=== PATIENT | female | born 1965 | race Caucasian/White ===

== ENCOUNTER → 2017-07-06 | Outpatient (CLI) | payer MEDICARE, MEDICAID ==
[~2017-07-06] MED LIST: BEANTAB2 PO; BUSP10TA PO; METF500T13 PO; MULT1TAB10 PO; OMEP20CA3 PO
[2017-07-06 10:42] LABS: BASO % 0.3 % (0.0-1.0); EOS # 0.2 K/mm3 (0.0-0.50); EOS % 3.4 % (0.0-3.0); LARGE UNSTAINED CELL # 0.1 K/mm3 (0.0-0.4); LARGE UNSTAINED CELL % 1.8 % (0.0-4.0); LYMPH # 2.4 K/mm3 (1.5-4.5); LYMPH % 32.7 % (24.0-44.0); MEAN CORPUSCULAR HEMOGLOBIN 29.9 pg (27.0-33.0); MEAN CORPUSCULAR HGB CONC 32.7 g/dl (32.0-36.5); MEAN CORPUSCULAR VOLUME 91.5 fl (80.0-96.0); MONO # 0.3 K/mm3 (0.0-0.8); MONO % 3.6 % (0.0-5.0); NEUTROPHILS # 4.1 K/mm3 (1.8-7.7); NEUTROPHILS % 58.2 % (36.0-66.0); PLATELET COUNT, AUTOMATED 307 k/mm3 (150-450); RED CELL DISTRIBUTION WIDTH 12.8 % (11.5-14.5)
[2017-07-06 11:43] LABS: ALBUMIN 3.5 GM/DL (3.2-5.2); ALBUMIN/GLOBULIN RATIO 0.95 (1.00-1.93); ALKALINE PHOSPHATASE 96 U/L (45-117); ALT/SGPT 23 U/L (12-78); ANION GAP 8 MEQ/L (8-16); AST/SGOT 12 U/L (15-37); BILIRUBIN,TOTAL 0.4 MG/DL (0.2-1.0); BLOOD UREA NITROGEN 18 MG/DL (7-18); CALCIUM LEVEL 8.9 MG/DL (8.5-10.1); CARBON DIOXIDE LEVEL 30 MEQ/L (21-32); CHLORIDE LEVEL 106 MEQ/L (98-107); CHOLESTEROL LEVEL 136 MG/DL (<200); CREATININE FOR GFR 0.82 MG/DL (0.55-1.02); FREE T4 1.21 NG/DL (0.76-1.46); GLOMERULAR FILTRATION RATE > 60.0 (>51); GLUCOSE, FASTING 89 MG/DL (70-105); POTASSIUM SERUM 4.4 MEQ/L (3.5-5.1); SODIUM LEVEL 144 MEQ/L (136-145); TOTAL PROTEIN 7.2 GM/DL (6.4-8.2); TRIGLYCERIDES LEVEL 96 MG/DL (<150)
== END ==
LOC: M LAB 09:54
PROVIDERS: ATTEND Nurse Practitioner Adult Health
DX: E55.9 Vitamin D deficiency, unspecified (principal); E78.00 Pure hypercholesterolemia, unspecified; Z51.81 Encounter for therapeutic drug level monitoring; Z79.899 Other long term (current) drug therapy

== ENCOUNTER 2017-09-08 11:23 | Outpatient (CLI) | payer MEDICARE, MEDICAID ==
[~2017-09-08] VITALS: Ht 162.6 cm; Wt 93.4 kg
[2017-09-08] MEDS ORDERED: NS 1,000 ML IV ONE (12:00)
[2017-09-08] MEDS ORDERED: LIDOCAINE 2% INJ 100 MG/5 ML SDV (FOR ANES.) As Ordered ONE (12:09)
[2017-09-08] MEDS ORDERED: PROPOFOL 200 MG/20 ML VIAL As Ordered ONE ×2 (12:09→12:30)
--- NOTE | 2017-09-08 12:28 | ROOR ---
Patient Name: Pippa Monk Procedure Date: 09/08/2017 12:05 PM Date of : 1965 Age: 52 Room: [facility] Gender: Female Note Status: Finalized Procedure: Upper GI endoscopy Indications: Surveillance for malignancy due to personal history of Mendoza's esophagus, Heartburn Providers: Valentin BRIONES MD Referring MD: MEL LUZ NP Requesting Provider: Medicines: Monitored Anesthesia Care Complications: No immediate complications. Procedure: Pre-Anesthesia Assessment: - The heart rate, respiratory rate, oxygen saturations, blood pressure, adequacy of pulmonary ventilation, and response to care were monitored throughout the procedure. The Endoscope was introduced through the mouth, and advanced to the second part of duodenum. The upper GI endoscopy was accomplished without difficulty. The patient tolerated the procedure well. Findings: There were esophageal mucosal changes consistent with long-segment Mendoza's esophagus present in the lower third of the esophagus. The maximum longitudinal extent of these mucosal changes was 4 cm in length. Mucosa was biopsied with a cold forceps for histology randomly at intervals of 1 cm from 30 to 34 cm from the incisors. A total of 4 specimen bottles were sent to pathology. A small hiatal hernia was present. The exam was otherwise without abnormality. Impression: - Esophageal mucosal changes consistent with 4 cm long-segment Mendoza's esophagus, circumferential and patchy, smooth, no nodularity. Biopsied. - Small hiatal hernia. - The examination was otherwise normal. Recommendation: - Use Prilosec (omeprazole) 20 mg PO BID for Barretts esophagus, the rest of the patient's life. - Repeat upper endoscopy in 3 years for surveillance. - (the script was sent to your pharmacy on file) Valentin Briones MD Valentin BRIONES MD 09/08/2017 12:28:17 PM This report has been signed electronically. Number of Addenda: 0 Note Initiated On: 09/08/2017 12:05 PM Estimated Blood Loss: Estimated blood loss: none.
--- NOTE | 2017-09-08 12:44 | ROOR ---
Patient Name: Pippa Monk Procedure Date: 09/08/2017 12:07 PM Date of : 1965 Age: 52 Room: [facility] Gender: Female Note Status: Finalized Procedure: Colonoscopy Indications: Screening for colorectal malignant neoplasm Providers: Valentin BRIONES MD Referring MD: MEL LUZ NP Requesting Provider: Medicines: Monitored Anesthesia Care Complications: No immediate complications. Procedure: Pre-Anesthesia Assessment: - The heart rate, respiratory rate, oxygen saturations, blood pressure, adequacy of pulmonary ventilation, and response to care were monitored throughout the procedure. The Colonoscope was introduced through the anus and advanced to 4 cm into the ileum. The colonoscopy was performed without difficulty. The patient tolerated the procedure well. The quality of the bowel preparation was good. Findings: The perianal and digital rectal examinations were normal. (Exam: Complete, Prep: Good or Excellent.) Multiple small and large-mouthed diverticula were found in the sigmoid colon. Internal hemorrhoids were found during retroflexion. The hemorrhoids were medium-sized. The entire examined colon appeared normal on direct and retroflexion views. Impression: - (Exam: Complete, Prep: Good or Excellent.) - Moderate Diverticulosis in the sigmoid colon. - Moderate Internal hemorrhoids. - The entire examined colon is otherwise normal on direct and retroflexion views. - No specimens collected. Recommendation: - Repeat colonoscopy in 10 years for screening purposes. Valentin Briones MD Valentin BRIONES MD 09/08/2017 12:44:15 PM This report has been signed electronically. Number of Addenda: 0 Note Initiated On: 09/08/2017 12:07 PM Estimated Blood Loss: Estimated blood loss: none.
[2017-09-08 13:05] VITALS: BP 147/87
== END 2017-09-08 13:30 | disposition home or self-care (01) ==
LOC: M OPP 11:23
PROVIDERS: ATTEND Internal Medicine Gastroenterology
DX: Z12.11 Encounter for screening for malignant neoplasm of colon (principal); K57.30 Diverticulosis of large intestine without perforation or abscess without bleeding; K64.8 Other hemorrhoids; K22.70 Barrett's esophagus without dysplasia; K44.9 Diaphragmatic hernia without obstruction or gangrene; E78.5 Hyperlipidemia, unspecified; E11.9 Type 2 diabetes mellitus without complications; R12 Heartburn; K21.9 Gastro-esophageal reflux disease without esophagitis; M19.90 Unspecified osteoarthritis, unspecified site; M79.7 Fibromyalgia; F41.9 Anxiety disorder, unspecified; F31.9 Bipolar disorder, unspecified; G43.909 Migraine, unspecified, not intractable, without status migrainosus; F43.10 Post-traumatic stress disorder, unspecified; H91.90 Unspecified hearing loss, unspecified ear; Z78.0 Asymptomatic menopausal state; J44.9 Chronic obstructive pulmonary disease, unspecified; G47.30 Sleep apnea, unspecified; R06.83 Snoring; Z87.891 Personal history of nicotine dependence; Z88.1 Allergy status to other antibiotic agents; Z88.8 Allergy status to other drugs, medicaments and biological substances; Z91.040 Latex allergy status; Z88.0 Allergy status to penicillin; Z79.84 Long term (current) use of oral hypoglycemic drugs; Z79.899 Other long term (current) drug therapy; Z96.29 Presence of other otological and audiological implants; Z80.8 Family history of malignant neoplasm of other organs or systems
CPT/HCPCS: 43239; 88305; G0121

== ENCOUNTER → 2017-12-06 | Outpatient (CLI) | payer MEDICARE, MEDICAID ==
[2017-12-06 11:08] LABS: BASO % 0.5 % (0.0-1.0); EOS # 0.2 10^3/uL (0.0-0.50); EOS % 2.1 % (0.0-3.0); HEMATOCRIT 41.3 % (36.0-47.0); HEMOGLOBIN 13.9 g/dl (12.0-16.0); IMMATURE GRANULOCYTE % 0.3 % (0-0); LYMPH # 2.9 10^3/uL (1.5-4.5); LYMPH % 37.8 % (24.0-44.0); MEAN CORPUSCULAR HEMOGLOBIN 30.2 pg (27.0-33.0); MEAN CORPUSCULAR HGB CONC 33.7 g/dl (32.0-36.5); MEAN CORPUSCULAR VOLUME 89.8 fl (80.0-96.0); MONO # 0.5 10^3/uL (0.0-0.8); MONO % 6.2 % (0.0-5.0); NEUTROPHILS # 4.1 10^3/uL (1.8-7.7); NEUTROPHILS % 53.1 % (36.0-66.0); PLATELET COUNT, AUTOMATED 293 10^3/uL (150-450); RED CELL DISTRIBUTION WIDTH 13.2 % (11.5-14.5); WHITE BLOOD COUNT 7.7 10^3/uL (4.0-10.0)
[2017-12-06 11:38] LABS: ESTIMATED AVERAGE GLUCOSE 117 MG/DL (60-110); HEMOGLOBIN A1c 5.7 %
[2017-12-06 11:49] LABS: ALBUMIN/GLOBULIN RATIO 1.18 (1.00-1.93); ALKALINE PHOSPHATASE 81 U/L (45-117); ALT/SGPT 34 U/L (12-78); ANION GAP 7 MEQ/L (8-16); AST/SGOT 14 U/L (7-37); BILIRUBIN,TOTAL 0.5 MG/DL (0.2-1.0); BLOOD UREA NITROGEN 25 MG/DL (7-18); CALCIUM LEVEL 8.7 MG/DL (8.5-10.1); CARBON DIOXIDE LEVEL 30 MEQ/L (21-32); CHLORIDE LEVEL 105 MEQ/L (98-107); CHOLESTEROL LEVEL 168 MG/DL (<200); CREATININE FOR GFR 0.85 MG/DL (0.55-1.02); CREATININE, URINE 73.8 MG/DL; GLOMERULAR FILTRATION RATE > 60.0 (>51); GLUCOSE, FASTING 95 MG/DL (70-105); HDL CHOLESTEROL 42 MG/DL (>40); LDL CHOLESTEROL 107.4 MG/DL (<100); MALB URINE SIEMENS < 5.0 MG/L; MAU/CREAT RATIO 6.7 MCG/MG (0.0-30.0); NON-HDL-C 126 MG/DL; POTASSIUM SERUM 4.3 MEQ/L (3.5-5.1); SODIUM LEVEL 142 MEQ/L (136-145); TOTAL PROTEIN 7.4 GM/DL (6.4-8.2); TRIGLYCERIDES LEVEL 93 MG/DL (<150)
[2017-12-08 09:01] LABS: TOTAL 25(OH) VITAMIN D 35.9 NG/ML (30.0-100.0)
== END ==
LOC: M LAB 10:30
DX: E55.9 Vitamin D deficiency, unspecified (principal); E11.9 Type 2 diabetes mellitus without complications; Z79.899 Other long term (current) drug therapy; J44.9 Chronic obstructive pulmonary disease, unspecified; G47.33 Obstructive sleep apnea (adult) (pediatric)
CPT/HCPCS: 71046

== ENCOUNTER 2018-04-14 18:14 | Emergency (ER) | payer MEDICARE, MEDICAID ==
[2018-04-14 20:10] LABS: BASO % 0.5 % (0.0-1.0); EOS # 0.2 10^3/uL (0.0-0.50); EOS % 2.4 % (0.0-3.0); HEMATOCRIT 40.3 % (36.0-47.0); HEMOGLOBIN 13.2 g/dl (12.0-15.5); IMMATURE GRANULOCYTE % 0.1 % (0-3.0); LYMPH # 2.8 10^3/uL (1.5-4.5); LYMPH % 35.3 % (24.0-44.0); MEAN CORPUSCULAR HEMOGLOBIN 30.3 pg (27.0-33.0); MEAN CORPUSCULAR HGB CONC 32.8 g/dl (32.0-36.5); MEAN CORPUSCULAR VOLUME 92.6 fl (80.0-96.0); MONO # 0.5 10^3/uL (0.0-0.8); MONO % 6.5 % (0.0-5.0); NEUTROPHILS # 4.4 10^3/uL (1.8-7.7); NEUTROPHILS % 55.2 % (36.0-66.0); PLATELET COUNT, AUTOMATED 291 10^3/uL (150-450); RED BLOOD COUNT 4.35 10^6/uL (4.00-5.40); RED CELL DISTRIBUTION WIDTH 12.7 % (11.5-14.5)
[2018-04-14 20:20] LABS: INR 0.94; PROTHROMBIN TIME 12.7 SECONDS (12.4-14.5)
[2018-04-14] MEDS ORDERED: ISOVUE-370 76% 100ML VIAL (Q9967) As Ordered (20:41)
[2018-04-14 20:42] LABS: ALBUMIN 3.9 GM/DL (3.2-5.2); ALBUMIN/GLOBULIN RATIO 1.08 (1.00-1.93); ALKALINE PHOSPHATASE 100 U/L (45-117); ALT/SGPT 37 U/L (12-78); AMYLASE 31 U/L (25-115); ANION GAP 3 MEQ/L (8-16); AST/SGOT 22 U/L (7-37); BILIRUBIN,DIRECT < 0.1 MG/DL (0.0-0.2); BILIRUBIN,TOTAL 0.3 MG/DL (0.2-1.0); BLOOD UREA NITROGEN 23 MG/DL (7-18); CALCIUM LEVEL 8.3 MG/DL (8.5-10.1); CARBON DIOXIDE LEVEL 29 MEQ/L (21-32); CHLORIDE LEVEL 112 MEQ/L (98-107); CREATININE FOR GFR 0.95 MG/DL (0.55-1.30); GLOMERULAR FILTRATION RATE > 60.0 (>51); GLUCOSE, FASTING 94 MG/DL (70-100); LIPASE 162 U/L (73-393); POTASSIUM SERUM 3.9 MEQ/L (3.5-5.1); SODIUM LEVEL 144 MEQ/L (136-145); TOTAL PROTEIN 7.5 GM/DL (6.4-8.2)
[2018-04-14] MEDS ORDERED: NORCO 5/325MG TABLET (BULK FOR ED) PO (22:45)
== END 2018-04-14 22:53 | disposition home or self-care (01) ==
LOC: M ED 18:14
DX: S62.617A Displaced fracture of proximal phalanx of left little finger, initial encounter for closed fracture (principal); V00.831A Fall from motorized mobility scooter, initial encounter; Y92.89 Other specified places as the place of occurrence of the external cause; M25.552 Pain in left hip; Z88.0 Allergy status to penicillin; Z88.1 Allergy status to other antibiotic agents; Z88.8 Allergy status to other drugs, medicaments and biological substances; Z91.040 Latex allergy status
CPT/HCPCS: Q9967

== ENCOUNTER 2018-04-17 13:21 | Emergency (ER) | payer MEDICARE, MEDICAID | END 2018-04-17 15:28 | disposition home or self-care (01) | LOC: M ED 13:21 | DX: F43.0 Acute stress reaction (principal); F41.9 Anxiety disorder, unspecified; E78.9 Disorder of lipoprotein metabolism, unspecified; G47.30 Sleep apnea, unspecified; Z88.8 Allergy status to other drugs, medicaments and biological substances; Z88.1 Allergy status to other antibiotic agents; Z88.0 Allergy status to penicillin; Z91.040 Latex allergy status; Z79.899 Other long term (current) drug therapy; Z79.84 Long term (current) use of oral hypoglycemic drugs ==

== ENCOUNTER 2018-04-18 10:58 | Inpatient (IN) | payer MEDICARE, MEDICAID ==
[2018-04-18] MEDS: NS 1,000 ML IV (11:00)
[2018-04-18] MEDS: LORazepam 2 MG/ML VIAL (J2060) IV (11:06)
[2018-04-18 11:31] LABS: BASO # 0.1 10^3/uL (0.0-0.2); BASO % 0.6 % (0.0-1.0); EOS # 0.2 10^3/uL (0.0-0.50); EOS % 2.7 % (0.0-3.0); HEMATOCRIT 41.1 % (36.0-47.0); HEMOGLOBIN 13.8 g/dl (12.0-15.5); IMMATURE GRANULOCYTE % 0.3 % (0-3.0); LYMPH # 3.3 10^3/uL (1.5-4.5); LYMPH % 41.6 % (24.0-44.0); MEAN CORPUSCULAR HEMOGLOBIN 30.5 pg (27.0-33.0); MEAN CORPUSCULAR HGB CONC 33.6 g/dl (32.0-36.5); MEAN CORPUSCULAR VOLUME 90.9 fl (80.0-96.0); MONO # 0.4 10^3/uL (0.0-0.8); MONO % 5.6 % (0.0-5.0); NEUTROPHILS # 3.9 10^3/uL (1.8-7.7); NEUTROPHILS % 49.2 % (36.0-66.0); PLATELET COUNT, AUTOMATED 310 10^3/uL (150-450); RED BLOOD COUNT 4.52 10^6/uL (4.00-5.40); RED CELL DISTRIBUTION WIDTH 12.8 % (11.5-14.5); WHITE BLOOD COUNT 7.8 10^3/uL (4.0-10.0)
[2018-04-18 11:57] LABS: ALBUMIN 4.3 GM/DL (3.2-5.2); ALBUMIN/GLOBULIN RATIO 1.19 (1.00-1.93); ALKALINE PHOSPHATASE 94 U/L (45-117); ALT/SGPT 36 U/L (12-78); ANION GAP 13 MEQ/L (8-16); AST/SGOT 29 U/L (7-37); BILIRUBIN,DIRECT < 0.1 MG/DL (0.0-0.2); BILIRUBIN,TOTAL 0.5 MG/DL (0.2-1.0); BLOOD UREA NITROGEN 22 MG/DL (7-18); CALCIUM LEVEL 9.1 MG/DL (8.5-10.1); CARBON DIOXIDE LEVEL 20 MEQ/L (21-32); CHLORIDE LEVEL 109 MEQ/L (98-107); CPK CREATINE PHOSPHOKINASE 458 U/L (26-192); CREATININE FOR GFR 1.25 MG/DL (0.55-1.30); GLOMERULAR FILTRATION RATE 47.7 (>51); GLUCOSE, FASTING 135 MG/DL (70-100); POTASSIUM SERUM 3.7 MEQ/L (3.5-5.1); SODIUM LEVEL 142 MEQ/L (136-145); TOTAL PROTEIN 7.9 GM/DL (6.4-8.2); TROPONIN I 0.06 NG/ML (< 0.10)
[2018-04-18 12:03] LABS: CK-MB VALUE MASS 4.2 NG/ML (<3.6); MB/CK RELATIVE INDEX 0.91 (< OR =4)
[2018-04-18] MEDS: PERCOCET 5MG/325MG TAB PO (12:27)
[2018-04-18 13:37] LABS: ACETAMINOPHEN LEVEL 7.8 UG/ML (10.0-30.0); SALICYLATE LEVEL < 1.7 MG/DL (5.0-30.0)
[2018-04-18 13:37] LABS: ETHYL ALCOHOL (ETHANOL) 0.004 % (0.000-0.010)
[2018-04-18 14:04] LABS: AMPHETAMINES LEVEL URINE NEGATIVE (NEGATIVE); BARBITURATES URINE NEGATIVE (NEGATIVE); BENZODIAZEPINES URINE NEGATIVE (NEGATIVE); CANNABINOIDS URINE POSITIVE (NEGATIVE); COCAINE METABOLITE URINE NEGATIVE (NEGATIVE); METHADONE URINE NEGATIVE (NEGATIVE); OPIATES URINE NEGATIVE (NEGATIVE); PHENCYCLIDINE URINE NEGATIVE (NEGATIVE)
[2018-04-18 15:15] LABS: ALBUMIN 3.7 GM/DL (3.2-5.2); ALBUMIN/GLOBULIN RATIO 1.32 (1.00-1.93); ALKALINE PHOSPHATASE 86 U/L (45-117); ALT/SGPT 34 U/L (12-78); ANION GAP 6 MEQ/L (8-16); AST/SGOT 28 U/L (7-37); BILIRUBIN,TOTAL 0.4 MG/DL (0.2-1.0); BLOOD UREA NITROGEN 20 MG/DL (7-18); CALCIUM LEVEL 8.1 MG/DL (8.5-10.1); CARBON DIOXIDE LEVEL 26 MEQ/L (21-32); CHLORIDE LEVEL 113 MEQ/L (98-107); GLOMERULAR FILTRATION RATE > 60.0 (>51); GLUCOSE, FASTING 104 MG/DL (70-100); POTASSIUM SERUM 3.9 MEQ/L (3.5-5.1); SODIUM LEVEL 145 MEQ/L (136-145); TOTAL PROTEIN 6.5 GM/DL (6.4-8.2)
[2018-04-18] MEDS ORDERED: MAALOX 30 ML SUSP *UDC PO (16:45)
[2018-04-18] MEDS ORDERED: MOM 30ML SUSPENSION UDC PO (16:45)
[2018-04-18] MEDS: LORazepam 2 MG TAB PO (17:14)
[2018-04-18] MEDS: DIVALPROEX 250MG *ER* TAB PO (21:53)
[2018-04-18] MEDS: VENLAFAXINE **XR** 37.5 MG CAPSULE PO (21:54)
[2018-04-18] MEDS: busPIRone 10 MG TAB PO (21:54)
[2018-04-18] MEDS: ALBUTEROL 90 MCG/ACT 8GM HFA INHALER INH (21:55)
[2018-04-19] MEDS: DIVALPROEX 250MG *ER* TAB PO ×3 (09:00→22:17)
[2018-04-19] MEDS: ALBUTEROL 90 MCG/ACT 8GM HFA INHALER INH ×4 (10:06→22:18)
[2018-04-19] MEDS: MULTIVITAMINS/MINERALS THERAP 1 TAB PO (10:07)
[2018-04-19] MEDS: MAGNESIUM OXIDE 400 MG TAB (MAG-OX) PO (10:07)
[2018-04-19] MEDS: hydrOXYzine 50 MG TAB PO (10:07)
[2018-04-19] MEDS: metFORMIN (GLUCOPHAGE) 500 MG TAB PO (10:08)
[2018-04-19] MEDS: busPIRone 10 MG TAB PO ×2 (10:08→22:17)
[2018-04-19] MEDS: OMEPRAZOLE 20 MG CAP PO (10:08)
[2018-04-19] MEDS: VENLAFAXINE **XR** 37.5 MG CAPSULE PO (10:10)
[2018-04-19] MEDS: LISINOPRIL 5 MG TAB PO (19:30)
[2018-04-19] MEDS: BACITRACIN OINT 30GM TOP (21:00)
[2018-04-19] MEDS: traZODone 50 MG TAB PO (22:15)
[2018-04-20 07:56] LABS: CPK CREATINE PHOSPHOKINASE 128 U/L (26-192)
[2018-04-20] MEDS: OMEPRAZOLE 20 MG CAP PO (09:14)
[2018-04-20] MEDS: MAGNESIUM OXIDE 400 MG TAB (MAG-OX) PO (09:14)
[2018-04-20] MEDS: MULTIVITAMINS/MINERALS THERAP 1 TAB PO (09:14)
[2018-04-20] MEDS: ALBUTEROL 90 MCG/ACT 8GM HFA INHALER INH ×2 (09:15→12:51)
[2018-04-20] MEDS: LISINOPRIL 5 MG TAB PO (09:15)
[2018-04-20] MEDS: VENLAFAXINE **XR** 37.5 MG CAPSULE PO (09:15)
[2018-04-20] MEDS: DIVALPROEX 250MG *ER* TAB PO (09:15)
[2018-04-20] MEDS: busPIRone 10 MG TAB PO (09:15)
[2018-04-20] MEDS: metFORMIN (GLUCOPHAGE) 500 MG TAB PO (09:15)
[2018-04-20] MEDS: BACITRACIN OINT 30GM TOP (09:16)
[2018-04-20] MEDS: ACETAMINOPHEN TAB 650MG DOSE (2X325MG) PO (11:20)
== END 2018-04-20 14:20 | disposition home or self-care (01) | DRG 885 ==
LOC: M ED 10:58 → M ED INP 16:45 → M PSY 18:40
PROVIDERS: Psychiatry & Neurology Psychiatry
DX: F31.9 Bipolar disorder, unspecified (principal); F43.10 Post-traumatic stress disorder, unspecified; F60.3 Borderline personality disorder; F41.9 Anxiety disorder, unspecified; Z79.899 Other long term (current) drug therapy; Z88.8 Allergy status to other drugs, medicaments and biological substances; Z88.0 Allergy status to penicillin; Z88.6 Allergy status to analgesic agent; Z91.040 Latex allergy status; G47.33 Obstructive sleep apnea (adult) (pediatric); E11.9 Type 2 diabetes mellitus without complications; K21.9 Gastro-esophageal reflux disease without esophagitis

== ENCOUNTER 2018-08-19 16:56 | Emergency (ER) | payer MEDICARE, MEDICAID ==
[2018-08-19 18:06] LABS: BASO % 0.4 % (0.0-1.0); EOS # 0.1 10^3/uL (0.0-0.50); EOS % 0.9 % (0.0-3.0); HEMATOCRIT 41.6 % (36.0-47.0); HEMOGLOBIN 13.8 g/dl (12.0-15.5); IMMATURE GRANULOCYTE % 0.1 % (0-3.0); LYMPH # 2.2 10^3/uL (1.5-4.5); LYMPH % 29.1 % (24.0-44.0); MEAN CORPUSCULAR HEMOGLOBIN 30.3 pg (27.0-33.0); MEAN CORPUSCULAR HGB CONC 33.2 g/dl (32.0-36.5); MEAN CORPUSCULAR VOLUME 91.4 fl (80.0-96.0); MONO # 0.4 10^3/uL (0.0-0.8); MONO % 4.8 % (0.0-5.0); NEUTROPHILS # 4.9 10^3/uL (1.8-7.7); NEUTROPHILS % 64.7 % (36.0-66.0); PLATELET COUNT, AUTOMATED 278 10^3/uL (150-450); RED BLOOD COUNT 4.55 10^6/uL (4.00-5.40); RED CELL DISTRIBUTION WIDTH 12.9 % (11.5-14.5); WHITE BLOOD COUNT 7.5 10^3/uL (4.0-10.0)
[2018-08-19 18:10] LABS: KETONE, URINE AUTO RFX 1+ mg/dL (NEGATIVE); LEUKOCYTE ESTERASE UR AUTO RFX NEGATIVE (NEGATIVE); MUCUS, URINE RFX SMALL (NEGATIVE); NITRITE, URINE AUTO RFX NEGATIVE (NEGATIVE); RBC, URINE AUTO RFX 2 /HPF (0-3); SPECIFIC GRAVITY UR AUTO RFX 1.026 (1.002-1.035); SQUAM EPITHELIAL CELL UR AURFX 2 /HPF (0-6); WBC, URINE AUTO RFX 1 /HPF (0-3)
[2018-08-19] MEDS: NS 1,000 ML IV (18:14)
[2018-08-19] MEDS: ONDANSETRON 4MG/2ML VIAL (J2405) IV (18:15)
[2018-08-19] MEDS: MORPHINE 4 MG/ML 1ML VIAL/SYRINGE (J2270) IV ×2 (18:15→19:42)
[2018-08-19 18:47] LABS: ALBUMIN 4.4 GM/DL (3.2-5.2); ALBUMIN/GLOBULIN RATIO 1.33 (1.00-1.93); ALKALINE PHOSPHATASE 81 U/L (45-117); ALT/SGPT 33 U/L (12-78); ANION GAP 10 MEQ/L (8-16); AST/SGOT 22 U/L (7-37); BILIRUBIN,DIRECT 0.1 MG/DL (0.0-0.2); BILIRUBIN,TOTAL 0.5 MG/DL (0.2-1.0); BLOOD UREA NITROGEN 23 MG/DL (7-18); CALCIUM LEVEL 9.1 MG/DL (8.5-10.1); CARBON DIOXIDE LEVEL 24 MEQ/L (21-32); CHLORIDE LEVEL 105 MEQ/L (98-107); GLOMERULAR FILTRATION RATE > 60.0 (>51); GLUCOSE, FASTING 88 MG/DL (70-100); LIPASE 110 U/L (73-393); POTASSIUM SERUM 4.1 MEQ/L (3.5-5.1); SODIUM LEVEL 139 MEQ/L (136-145); TOTAL PROTEIN 7.7 GM/DL (6.4-8.2)
[2018-08-19] MEDS: BACLOFEN 10 MG TAB PO (19:15)
== END 2018-08-19 20:30 | disposition home or self-care (01) ==
LOC: M ED 16:56
DX: S39.012A Strain of muscle, fascia and tendon of lower back, initial encounter (principal); X50.9XXA Other and unspecified overexertion or strenuous movements or postures, initial encounter; Y92.89 Other specified places as the place of occurrence of the external cause; E11.9 Type 2 diabetes mellitus without complications; G47.33 Obstructive sleep apnea (adult) (pediatric); F43.10 Post-traumatic stress disorder, unspecified; F41.9 Anxiety disorder, unspecified; F33.9 Major depressive disorder, recurrent, unspecified; Z79.1 Long term (current) use of non-steroidal anti-inflammatories (NSAID); Z88.0 Allergy status to penicillin; Z88.1 Allergy status to other antibiotic agents; Z87.891 Personal history of nicotine dependence
CPT/HCPCS: J2270

== ENCOUNTER → 2018-11-28 | Outpatient (CLI) | payer MEDICARE, MEDICAID ==
[~2018-11-28] MED LIST changes: +ALEV220T26 PO; +ARIP5TA PO; +BACL10TA2 PO; +DEPA250T2 PO; +HYDRO50TAB PO; +MAGN250T9 PO; +NORCOTAB PO; +TRAZO50TA PO; +TYLE500T78 PO; +VENL37.598 PO; +VENTAER INH
[2018-11-28 11:19] LABS: BASO % 0.4 % (0.0-1.0); EOS # 0.2 10^3/uL (0.0-0.50); EOS % 2.4 % (0.0-3.0); HEMATOCRIT 42.2 % (36.0-47.0); HEMOGLOBIN 13.8 g/dl (12.0-15.5); LYMPH # 4.2 10^3/uL (1.5-4.5); MEAN CORPUSCULAR HEMOGLOBIN 30.1 pg (27.0-33.0); MEAN CORPUSCULAR HGB CONC 32.7 g/dl (32.0-36.5); MEAN CORPUSCULAR VOLUME 91.9 fl (80.0-96.0); MONO # 0.6 10^3/uL (0.0-0.8); NEUTROPHILS # 4.7 10^3/uL (1.8-7.7); NEUTROPHILS % 47.7 % (36.0-66.0); PLATELET COUNT, AUTOMATED 334 10^3/uL (150-450); RED BLOOD COUNT 4.59 10^6/uL (4.00-5.40); WHITE BLOOD COUNT 9.9 10^3/uL (4.0-10.0)
[2018-11-28 11:36] LABS: HEMOGLOBIN A1c 5.8 %
[2018-11-28 12:06] LABS: ALBUMIN 3.6 GM/DL (3.2-5.2); ALT/SGPT 23 U/L (12-78); BILIRUBIN,TOTAL 0.3 MG/DL (0.2-1.0); BLOOD UREA NITROGEN 21 MG/DL (7-18); CALCIUM LEVEL 8.7 MG/DL (8.5-10.1); CARBON DIOXIDE LEVEL 29 MEQ/L (21-32); CHLORIDE LEVEL 112 MEQ/L (98-107); CHOLESTEROL LEVEL 154 MG/DL (<200); CHOLESTEROL RISK RATIO 4.812 (<5); CREATININE FOR GFR 0.87 MG/DL (0.55-1.30); GLOMERULAR FILTRATION RATE > 60.0 (>51); GLUCOSE, FASTING 98 MG/DL (70-100); HDL CHOLESTEROL 32 MG/DL (>40); LDL CHOLESTEROL 93 MG/DL (<100); NON-HDL-C 122 MG/DL; POTASSIUM SERUM 4.9 MEQ/L (3.5-5.1); SODIUM LEVEL 151 MEQ/L (136-145); THYROID STIMULATING HORMONE 0.902 uIU/ML (0.358-3.740); TRIGLYCERIDES LEVEL 144 MG/DL (<150)
[2018-11-30 11:29] LABS: HEPATITIS B SURFACE ANTIGEN NEGATIVE (NEGATIVE)
[2018-11-30 11:57] LABS: HEPATITIS B CORE ANTIBODY IGM NEGATIVE (NEGATIVE); HEPATITIS C VIRUS ABY INDEX 0.1 INDEX (<0.8)
[2018-11-30 11:58] LABS: HIV 1&2 SCREEN CENTAUR NEGATIVE (NEGATIVE)
[2018-11-30 11:59] LABS: HEPATITIS A ANTIBODY IGM NEGATIVE (NEGATIVE)
== END ==
LOC: M LAB 10:44
PROVIDERS: ATTEND Physician Assistant Medical
DX: I10 Essential (primary) hypertension (principal); R53.83 Other fatigue; E78.2 Mixed hyperlipidemia; E11.9 Type 2 diabetes mellitus without complications

== ENCOUNTER → 2018-12-22 | Outpatient (CLI) | payer MEDICARE, MEDICAID ==
--- NOTE | 2018-12-22 17:23 | REPMRS ---
Patient History The patient states she had a clinical breast exam in 10/18.No known family history of cancer. 40 pound weight loss since last mammo. ( Intentional) Digital Mammo Screening Bilat: December 22, 2018 - Exam #: [id number] Bilateral CC and MLO view(s) were taken. Technologist: aLcy Huffman, Technologist Prior study comparison: August 26, 2014, left breast digital mammo diagnostic unilateral performed at [facility]. FINDINGS: There are scattered fibroglandular densities. There has been no change in the appearance of the mammogram from the prior studies. There is a mild amount of scattered fibroglandular density which is fairly symmetric. There is no interval development of dominant mass, architectural distortion, or clustered microcalcification suggestive of malignancy. 3-D tomosynthesis shows no additional findings. Assessment: BI-RADS/ACR category 1 mammogram. Negative Mammogram. Recommendation Routine screening mammogram of both breasts in 1 year (for women over age 40). This patient's Lifetime Breast Cancer RIsk is estimated at 8.7 %. This mammogram was interpreted with the aid of an FDA-approved computer-aided dectection system. Electronically Signed By: Rm López MD 12/22/18 [id number]
== END ==
LOC: M RAD 16:45
PROVIDERS: ATTEND Nurse Practitioner Women's Health
DX: Z12.31 Encounter for screening mammogram for malignant neoplasm of breast (principal)

== ENCOUNTER 2019-06-07 23:16 | Inpatient (IN) | payer MEDICARE, MEDICAID ==
[~2019-06-07] VITALS: Ht 162.6 cm; Wt 88.0 kg
[~2019-06-07 23:16] MED LIST changes: +ARIP1TAB6 PO; -ARIP5TA PO; +HYDR-3715 PO; -NORCOTAB PO; -OMEP20CA3 PO; +OMEP20CA4 PO; +TRAZ1TAB10 PO; -TRAZO50TA PO
[2019-06-07] MEDS ORDERED: hydrOXYzine 10 MG TAB PO STA (23:40)
[2019-06-07] MEDS ORDERED: HALOPERIDOL 5 MG/ML VIAL (J1630) IM STA (23:40)
[2019-06-07] MEDS ORDERED: diphenhydrAMINE INJ 50MG/ML VIAL (J1200) IM STA (23:40)
[2019-06-07] MEDS ORDERED: HALOPERIDOL 5 MG/ML VIAL (J1630) As Ordered ONE (23:43)
[2019-06-07] MEDS ORDERED: diphenhydrAMINE INJ 50MG/ML VIAL (J1200) As Ordered ONE (23:43)
[2019-06-08] MEDS ORDERED: chlorproMAZINE INJ 50MG/2ML AMP (J3230) IM STA (00:31)
[2019-06-08] MEDS ORDERED: LORazepam 2 MG/ML VIAL (J2060) IM STA (00:31)
[2019-06-08 00:59] LABS: HEMATOCRIT 38.6 % (36.0-47.0); HEMOGLOBIN 12.7 g/dl (12.0-15.5); MEAN CORPUSCULAR HEMOGLOBIN 30.9 pg (27.0-33.0); MEAN CORPUSCULAR HGB CONC 32.9 g/dl (32.0-36.5); MEAN CORPUSCULAR VOLUME 93.9 fl (80.0-96.0); PLATELET COUNT, AUTOMATED 248 10^3/uL (150-450); RED BLOOD COUNT 4.11 10^6/uL (4.00-5.40)
[2019-06-08 01:41] LABS: ACETAMINOPHEN LEVEL < 2.0 UG/ML (10.0-30.0); ALBUMIN 3.8 GM/DL (3.2-5.2); ALT/SGPT 29 U/L (12-78); BILIRUBIN,DIRECT < 0.1 MG/DL (0.0-0.2); BILIRUBIN,TOTAL 0.2 MG/DL (0.2-1.0); BLOOD UREA NITROGEN 20 MG/DL (7-18); CALCIUM LEVEL 8.6 MG/DL (8.5-10.1); CARBON DIOXIDE LEVEL 24 MEQ/L (21-32); CHLORIDE LEVEL 112 MEQ/L (98-107); CREATININE FOR GFR 1.18 MG/DL (0.55-1.30); GLOMERULAR FILTRATION RATE 50.8 (>51); GLUCOSE, FASTING 144 MG/DL (70-100); POTASSIUM SERUM 3.5 MEQ/L (3.5-5.1); SALICYLATE LEVEL < 1.7 MG/DL (5.0-30.0); SODIUM LEVEL 145 MEQ/L (136-145); TOTAL PROTEIN 7.1 GM/DL (6.4-8.2)
[2019-06-08 01:42] LABS: ETHYL ALCOHOL (ETHANOL) < 0.003 % (0.000-0.010)
[2019-06-08 02:15] LABS: AMPHETAMINES LEVEL URINE NEGATIVE (NEGATIVE); BARBITURATES URINE NEGATIVE (NEGATIVE); BENZODIAZEPINES URINE NEGATIVE (NEGATIVE); CANNABINOIDS URINE POSITIVE (NEGATIVE); COCAINE METABOLITE URINE NEGATIVE (NEGATIVE); METHADONE URINE NEGATIVE (NEGATIVE); OPIATES URINE NEGATIVE (NEGATIVE); PHENCYCLIDINE URINE NEGATIVE (NEGATIVE)
[2019-06-08] MEDS ORDERED: LORazepam 1 MG TAB PO ONE (09:00)
[2019-06-08] MEDS ORDERED: REME30TA PO (09:27)
[2019-06-08] MEDS ORDERED: BACL1TAB9 PO (09:27)
[2019-06-08] MEDS ORDERED: HYDR50TA70 PO (09:27)
[2019-06-08] MEDS ORDERED: VENL37.52 PO (09:27)
[2019-06-08] MEDS ORDERED: CENT1TAB9 PO (09:27)
[2019-06-08] MEDS ORDERED: METF500T4 PO (09:27)
[2019-06-08] MEDS ORDERED: IRON65TA2 PO (09:27)
[2019-06-08] MEDS ORDERED: OMEP-218 PO (09:27)
[2019-06-08] MEDS ORDERED: PRAZ2CAP PO (09:27)
[2019-06-08] MEDS ORDERED: BUSP10TA PO (09:27)
[2019-06-08] MEDS ORDERED: BP MED PO (09:38)
[2019-06-08] MEDS ORDERED: OMEPRAZOLE 20 MG CAP PO ONE (10:00)
[2019-06-08] MEDS ORDERED: busPIRone 10 MG TAB PO ONE (10:00)
[2019-06-08] MEDS ORDERED: metFORMIN XR 500MG TAB *GLUCOPHAGE XR PO ONE (10:00)
[2019-06-08] MEDS ORDERED: metFORMIN (GLUCOPHAGE) 500 MG TAB PO ONE (10:00)
[2019-06-08] MEDS ORDERED: MAGN400T2 PO (11:14)
[2019-06-08] MEDS ORDERED: MOM 30ML SUSPENSION UDC PO PRN (13:15)
[2019-06-08 15:42] VITALS: BP 140/90
[2019-06-08] MEDS: BACLOFEN 10 MG TAB PO SCH ×2 (16:11→21:36)
[2019-06-08] MEDS: FERROUS SULFATE 325MG TAB PO SCH (21:33)
[2019-06-08] MEDS: traZODone 50 MG TAB PO PRN (21:33)
[2019-06-08] MEDS: MAGNESIUM OXIDE 400 MG TAB (MAG-OX) PO SCH (21:34)
[2019-06-08] MEDS: PRAZOSIN 1 MG CAP PO SCH (21:36)
[2019-06-08] MEDS: OLANZapine 5 MG TAB PO PRN (22:49)
[2019-06-09 06:51] VITALS: BP 130/87
--- NOTE | 2019-06-09 07:51 | HPEPDOC ---
General Date of Admission Jun 08, 2019 at 13:15 Date of Service: Jun 09, 2019 Attending Physician: BATSHEVA MENDEZ MD Chief Complaint The patient is a 54-year-old female admitted with a reason for visit of GASTON. History of Present Illness Aleshia Das is a 54 year old female, PMH significant for PTSD, anxiety, depression, presenting to the emergency room after significant other called arnie reji due to patients increasing agitation. On admit, patient was very agitated, verbally abusive, uncooperative, labile. Urine drug screen was positive for THC. At time of evaluation, she still very emotional and tearful, she however denies any chest pain, shortness of breath, weakness, abdominal pain, chills, fever. Basic chemistry was abnormal for reduced GFR, repeat chemistry levels this morning show normalized values. Home Medications Scheduled Baclofen (Baclofen) 20 Mg Tablet, 20 MG PO TID, (Reported) Buspirone HCl (Buspirone HCl) 10 Mg Tablet, 10 MG PO BID, (Reported) Ferrous Sulfate (Iron) 325 Mg Tablet, 325 MG PO QHS, (Reported) Magnesium Oxide (Magnesium Oxide) 400 Mg Tablet, 400 MG PO QHS, (Reported) Metformin HCl (Metformin HCl ER) 500 Mg Tab.er.24h, 500 MG PO DAILY, (Reported) Mirtazapine (Remeron) 30 Mg Tablet, 30 MG PO QHS, (Reported) Multivit-Min/Iron/Folic/Lutein (Centrum Silver Women Tablet) 1 Each Tablet, 1 TAB PO QHS, (Reported) Omeprazole (Omeprazole) 20 Mg Capsule.dr, 20 MG PO DAILY, (Reported) Prazosin Hcl (Prazosin HCl) 2 Mg Capsule, 2 MG PO QHS, (Reported) Venlafaxine HCl (Venlafaxine HCl ER) 37.5 Mg Cap.er.24h, 37.5 MG PO QHS, (Reported) Scheduled PRN Hydroxyzine HCl (Hydroxyzine HCl) 50 Mg Tablet, 50 MG PO TID PRN for ANXIETY, ( Reported) Allergies Coded Allergies: Penicillins (Verified Allergy, Unknown, CHILDHOOD REACTION, 06/08/19) bacitracin (Verified Allergy, Unknown, SWELLING, 06/08/19) neomycin (Verified Allergy, Unknown, SWELLING, 06/08/19) polymyxin B (Verified Allergy, Unknown, SWELLING, 06/08/19) ciprofloxacin (Verified Adverse Reaction, Intermediate, MUSCLE PAIN, 06/08/19) ibuprofen (Verified Adverse Reaction, Intermediate, HORRIBLE PAIN IN BACK, 06/07/19) levofloxacin (Verified Adverse Reaction, Intermediate, SEVERE MUSCLE PAIN, 06/08/19) Past Medical History Medical History Type 2 diabetes mellitus Obstructive sleep apnea Obesity Bipolar disorder. PTSD GERD Depression Anxiety Surgical History Cholecystectomy Tubal ligation Left ankle surgery Mastoidectomy. Bilateral eardrum surgery Family History Follow-up: Cirrhosis Mother: Bipolar Social History Denies tobacco, alcohol, smokes THC every day A-FIB/CHADSVASC A-FIB History Current/History of A-Fib/PAF?: No Current PO Anticoag Therapy: No Review of Systems Other systems A 10 point pertinent review of systems was completed, negative except as stated in the history of presenting illness. Physical Examination Other physical findings GENERAL: NAD SKIN : Warm, dry intact HEENT: Atraumatic, normocephalic, PERRL, moist mucous membrane CARDIOVASCULAR: Regular rate and rhythm, S1S2, no JVD, no edema, distal pulses + and palpable RESP: CTAB, no accessory muscle use noted ABDOMEN: BS+ non distended non tender MS: no joint deformities NEURO: Alert and oriented x 3, CN2-12 grossly intact PSYCH: Anxious and agitated, tearful Vital Signs Vital Signs Date Time Temp Pulse Resp B/P (MAP) Pulse Ox O2 Delivery O2 Flow Rate FiO2 06/09/19 06:51 97.0 104 16 130/87 (101) 06/08/19 15:42 99 06/08/19 15:20 Room Air Assessment/Plan Type 2 diabetes mellitus Obstructive sleep apnea Morbid obesity COPD Polysubstance abuse with THC Bipolar disorder with acute gaston PLAN Finger stick checks prior to meals and at bedtime, continue coverage with metformin. Although patient has been diagnosed with sleep apnea, she does not use, or have a CPAP machine at home. Order scheduled bronchodilator therapy for patient and as needed Evaluation and management of acute gaston by primary team Plan / VTE VTE Prophylaxis Ordered?: No VTE Exclusion Mechanical Proph: Low Risk for VTE LINK DUONG Jun 09, 2019 07:51
[2019-06-09] MEDS: BACLOFEN 10 MG TAB PO SCH ×3 (08:07→20:37)
[2019-06-09 08:13] LABS: HEMOGLOBIN 12.8 g/dl (12.0-15.5); MEAN CORPUSCULAR HGB CONC 32.8 g/dl (32.0-36.5); MEAN CORPUSCULAR VOLUME 91.3 fl (80.0-96.0); PLATELET COUNT, AUTOMATED 259 10^3/uL (150-450); RED BLOOD COUNT 4.27 10^6/uL (4.00-5.40); WHITE BLOOD COUNT 7.6 10^3/uL (4.0-10.0)
[2019-06-09 08:56] LABS: ALBUMIN 3.7 GM/DL (3.2-5.2); ALT/SGPT 35 U/L (12-78); BILIRUBIN,TOTAL 0.4 MG/DL (0.2-1.0); BLOOD UREA NITROGEN 15 MG/DL (7-18); CARBON DIOXIDE LEVEL 27 MEQ/L (21-32); CHLORIDE LEVEL 109 MEQ/L (98-107); CREATININE FOR GFR 0.95 MG/DL (0.55-1.30); GLOMERULAR FILTRATION RATE > 60.0 (>51); GLUCOSE, FASTING 115 MG/DL (70-100); POTASSIUM SERUM 4.5 MEQ/L (3.5-5.1); SODIUM LEVEL 143 MEQ/L (136-145); TOTAL PROTEIN 7.2 GM/DL (6.4-8.2)
[2019-06-09] MEDS: metFORMIN XR 500MG TAB *GLUCOPHAGE XR PO SCH (09:33)
[2019-06-09] MEDS: COMBIVENT RESPIMAT 100-20MCG INHALER 4GM INH SCH ×2 (14:00→20:39)
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
[2019-06-09 18:00] VITALS: BP 140/92
[2019-06-09] MEDS: FERROUS SULFATE 325MG TAB PO SCH (20:37)
[2019-06-09] MEDS: busPIRone 10 MG TAB PO SCH (20:37)
[2019-06-09] MEDS: MAGNESIUM OXIDE 400 MG TAB (MAG-OX) PO SCH (20:39)
[2019-06-09] MEDS: PRAZOSIN 1 MG CAP PO SCH (20:39)
[2019-06-09] MEDS ORDERED: LITHIUM CARBONATE 300 MG CAP PO SCH (21:00)
[2019-06-10] MEDS: traZODone 50 MG TAB PO PRN ×2 (01:45→20:08)
[2019-06-10 06:32] LABS: HEMATOCRIT 38.6 % (36.0-47.0); HEMOGLOBIN 12.8 g/dl (12.0-15.5); MEAN CORPUSCULAR HEMOGLOBIN 30.3 pg (27.0-33.0); MEAN CORPUSCULAR HGB CONC 33.2 g/dl (32.0-36.5); MEAN CORPUSCULAR VOLUME 91.3 fl (80.0-96.0); PLATELET COUNT, AUTOMATED 253 10^3/uL (150-450); RED BLOOD COUNT 4.23 10^6/uL (4.00-5.40); WHITE BLOOD COUNT 6.7 10^3/uL (4.0-10.0)
[2019-06-10 06:49] VITALS: BP 117/71
[2019-06-10 07:04] LABS: ALBUMIN 3.7 GM/DL (3.2-5.2); ALT/SGPT 36 U/L (12-78); BILIRUBIN,TOTAL 0.3 MG/DL (0.2-1.0); BLOOD UREA NITROGEN 20 MG/DL (7-18); CALCIUM LEVEL 8.8 MG/DL (8.5-10.1); CARBON DIOXIDE LEVEL 25 MEQ/L (21-32); CHLORIDE LEVEL 109 MEQ/L (98-107); CREATININE FOR GFR 0.87 MG/DL (0.55-1.30); GLOMERULAR FILTRATION RATE > 60.0 (>51); GLUCOSE, FASTING 96 MG/DL (70-100); POTASSIUM SERUM 4.1 MEQ/L (3.5-5.1); SODIUM LEVEL 142 MEQ/L (136-145); TOTAL PROTEIN 7.1 GM/DL (6.4-8.2)
[2019-06-10] MEDS: COMBIVENT RESPIMAT 100-20MCG INHALER 4GM INH SCH ×2 (07:49→20:09)
[2019-06-10] MEDS: busPIRone 10 MG TAB PO SCH ×2 (10:04→20:08)
[2019-06-10] MEDS: BACLOFEN 10 MG TAB PO SCH ×3 (10:05→20:08)
[2019-06-10] MEDS: metFORMIN XR 500MG TAB *GLUCOPHAGE XR PO SCH (10:05)
--- NOTE | 2019-06-10 11:03 | REP ---
Pelvis/right hip: Three views. History: Right hip pain. Findings: AP and frog-leg views of the right hip are acquired in addition to an AP view of the pelvis. Femoral heads are smooth and rounded and hip joint spaces are preserved bilaterally. Periarticular soft tissues are normal on the right. There is some tendon insertion site spurring of the greater trochanter of the right hip. There are pelvic clips noted centrally. Degenerative sclerosis is seen at the symphysis pubis. There is a benign osteochondroma projecting from the anterolateral aspect of the left iliac bone noted incidentally. This is unchanged from CT study of April 14, 2018. Impression: Tendon insertion site spurring greater trochanter right hip may reflect tendonitis. Degenerative sclerosis at the symphysis pubis. 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 Electronically Signed by Olivier López MD 06/10/2019 04:57 P
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
[2019-06-10] MEDS ORDERED: DIVALPROEX 250MG *ER* TAB PO ONE (12:00)
[2019-06-10] MEDS ORDERED: PALIPERIDONE 3 MG ER TAB (INVEGA) PO ONE (13:00)
[2019-06-10 18:00] VITALS: BP 134/80
[2019-06-10] MEDS: DIVALPROEX 250MG *ER* TAB PO SCH (20:08)
[2019-06-10] MEDS: MAGNESIUM OXIDE 400 MG TAB (MAG-OX) PO SCH (20:08)
[2019-06-10] MEDS: FERROUS SULFATE 325MG TAB PO SCH (20:08)
[2019-06-10] MEDS: PRAZOSIN 1 MG CAP PO SCH (20:09)
[2019-06-10] MEDS ORDERED: PALIPERIDONE 3 MG ER TAB (INVEGA) PO SCH (21:00)
[2019-06-10] MEDS: ACETAMINOPHEN TAB 650MG DOSE (2X325MG) PO PRN (21:06)
[2019-06-11] MEDS ORDERED: OLANZapine ORAL DISINTEGRATING TAB 5MG PO ONE (00:15)
[2019-06-11 06:59] VITALS: BP 126/66
[2019-06-11] MEDS: COMBIVENT RESPIMAT 100-20MCG INHALER 4GM INH SCH ×2 (07:52→20:00)
[2019-06-11] MEDS: BACLOFEN 10 MG TAB PO SCH ×3 (07:56→21:02)
[2019-06-11] MEDS: busPIRone 10 MG TAB PO SCH ×2 (07:56→21:02)
[2019-06-11] MEDS: metFORMIN XR 500MG TAB *GLUCOPHAGE XR PO SCH (07:57)
[2019-06-11] MEDS: DIVALPROEX 250MG *ER* TAB PO SCH (07:57)
[2019-06-11] MEDS ORDERED: PALIPERIDONE 3 MG ER TAB (INVEGA) PO SCH (09:00)
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
[2019-06-11] MEDS: PANTOPRAZOLE 40MG TAB (PROTONIX) PO SCH (15:12)
[2019-06-11 18:10] VITALS: BP 138/92
[2019-06-11] MEDS: LITHIUM CARBONATE 300 MG CAP PO SCH (21:02)
[2019-06-11] MEDS: FERROUS SULFATE 325MG TAB PO SCH (21:02)
[2019-06-11] MEDS: MAGNESIUM OXIDE 400 MG TAB (MAG-OX) PO SCH (21:02)
[2019-06-11] MEDS: traZODone 50 MG TAB PO PRN (21:02)
[2019-06-11] MEDS: PRAZOSIN 1 MG CAP PO SCH (21:03)
[2019-06-11] MEDS: ACETAMINOPHEN TAB 650MG DOSE (2X325MG) PO PRN (21:04)
[2019-06-11] MEDS: LORazepam 2 MG TAB PO PRN (21:05)
[2019-06-12 06:50] VITALS: BP 131/74
[2019-06-12] MEDS: COMBIVENT RESPIMAT 100-20MCG INHALER 4GM INH SCH ×2 (07:26→20:27)
[2019-06-12] MEDS: BACLOFEN 10 MG TAB PO SCH ×3 (08:02→20:28)
[2019-06-12] MEDS: metFORMIN XR 500MG TAB *GLUCOPHAGE XR PO SCH (08:02)
[2019-06-12] MEDS: PANTOPRAZOLE 40MG TAB (PROTONIX) PO SCH (08:02)
[2019-06-12] MEDS: busPIRone 10 MG TAB PO SCH ×2 (08:02→20:28)
[2019-06-12] MEDS: LORazepam 2 MG TAB PO PRN ×2 (08:53→20:28)
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
[2019-06-12 18:00] VITALS: BP 136/77
[2019-06-12] MEDS: traZODone 50 MG TAB PO PRN (20:28)
[2019-06-12] MEDS: LITHIUM CARBONATE 300 MG CAP PO SCH (20:28)
[2019-06-12] MEDS: FERROUS SULFATE 325MG TAB PO SCH (20:28)
[2019-06-12] MEDS: MAGNESIUM OXIDE 400 MG TAB (MAG-OX) PO SCH (20:28)
[2019-06-12] MEDS: PRAZOSIN 1 MG CAP PO SCH (20:31)
[2019-06-13] MEDS: PANTOPRAZOLE 40MG TAB (PROTONIX) PO SCH (06:50)
[2019-06-13 06:54] VITALS: BP 122/58
[2019-06-13] MEDS: COMBIVENT RESPIMAT 100-20MCG INHALER 4GM INH SCH ×2 (07:23→20:32)
[2019-06-13] MEDS: metFORMIN XR 500MG TAB *GLUCOPHAGE XR PO SCH (08:16)
[2019-06-13] MEDS: busPIRone 10 MG TAB PO SCH ×2 (08:16→20:32)
[2019-06-13] MEDS: BACLOFEN 10 MG TAB PO SCH ×3 (08:17→20:33)
[2019-06-13 18:00] VITALS: BP 138/80
[2019-06-13] MEDS: LITHIUM CARBONATE 300 MG CAP PO SCH (20:28)
[2019-06-13] MEDS: FERROUS SULFATE 325MG TAB PO SCH (20:32)
[2019-06-13] MEDS: MAGNESIUM OXIDE 400 MG TAB (MAG-OX) PO SCH (20:32)
[2019-06-13] MEDS: PRAZOSIN 1 MG CAP PO SCH (20:33)
[2019-06-13] MEDS: traZODone 50 MG TAB PO PRN (20:33)
[2019-06-13] MEDS: ACETAMINOPHEN TAB 650MG DOSE (2X325MG) PO PRN (20:34)
[2019-06-13] MEDS: LORazepam 2 MG TAB PO PRN (22:32)
[2019-06-13] MEDS: OLANZapine 5 MG TAB PO PRN (22:32)
[2019-06-14] MEDS: PANTOPRAZOLE 40MG TAB (PROTONIX) PO SCH (06:03)
[2019-06-14 06:55] VITALS: BP 118/56
[2019-06-14] MEDS: COMBIVENT RESPIMAT 100-20MCG INHALER 4GM INH SCH ×2 (08:40→21:06)
[2019-06-14] MEDS: busPIRone 10 MG TAB PO SCH ×2 (08:41→21:06)
[2019-06-14] MEDS: BACLOFEN 10 MG TAB PO SCH ×3 (08:41→21:06)
[2019-06-14] MEDS: metFORMIN XR 500MG TAB *GLUCOPHAGE XR PO SCH (08:42)
[2019-06-14] MEDS: LITHIUM CARBONATE 300 MG CAP PO SCH (08:45)
[2019-06-14] MEDS: LORazepam 2 MG TAB PO PRN (10:21)
[2019-06-14] MEDS ORDERED: DIVALPROEX 250 MG TAB PO ONE (14:00)
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
[2019-06-14 18:12] VITALS: BP 150/91
[2019-06-14] MEDS: DIVALPROEX 250 MG TAB PO SCH (21:06)
[2019-06-14] MEDS: MAGNESIUM OXIDE 400 MG TAB (MAG-OX) PO SCH (21:06)
[2019-06-14] MEDS: FERROUS SULFATE 325MG TAB PO SCH (21:06)
[2019-06-14] MEDS: traZODone 50 MG TAB PO PRN (21:07)
[2019-06-14] MEDS: PRAZOSIN 1 MG CAP PO SCH (21:10)
[2019-06-15] MEDS: PANTOPRAZOLE 40MG TAB (PROTONIX) PO SCH (06:20)
[2019-06-15 06:46] VITALS: BP 139/85
[2019-06-15] MEDS: COMBIVENT RESPIMAT 100-20MCG INHALER 4GM INH SCH ×2 (07:57→20:06)
[2019-06-15] MEDS: busPIRone 10 MG TAB PO SCH ×2 (08:02→20:07)
[2019-06-15] MEDS: DIVALPROEX 250 MG TAB PO SCH ×2 (08:02→20:07)
[2019-06-15] MEDS: BACLOFEN 10 MG TAB PO SCH ×3 (08:02→20:07)
[2019-06-15] MEDS: metFORMIN XR 500MG TAB *GLUCOPHAGE XR PO SCH (08:03)
--- NOTE | 2019-06-15 11:29 | MHIPNPDOC ---
[facility] Progress Note Progress Note Inpatient Progress Note Pippa Monk Age 54 Female Date of : 1965 Date of Service: 06/15/2019 History of Present Illness The patient a 54-year-old woman presents to [facility] after notably acting in a bizarre manner in a local dairy shop, where she had subsequently began yelling that her boyfriend was killing her and drove off, leaving her boyfriend stranded. Her boyfriend relayed a consistent story of increasing bizarre ideation and behavioral problems. She has a history of bipolar when she was initially brought into the emergency room. She was noted to be fairly agitated, spitting on staff and needing to be physically restrained. Interval History The patient has met with today where she describes that she is feeling much improved on the Depakote and Abilify. She describes she has noticed no particular side effects from the medications and that she is doing well. Staff have noticed that she is much less problematic in terms of her intrusiveness and circumstantial thinking. She does not have any behavioral problems on the unit and no more reported falls that appear to be primarily behavioral. Review Of Systems Reports improved sense of mood stability, less irritability, and improved sleep. Denies any tremors or GI upset. Psychotherapy None on this visit. Vital Signs Reviewed. Mental Status Examination General: Well dressed with good hygiene Speech: Spontaneous and fluid Thought processes: More linear MSK: Smooth and coordinated gait, no signs of tremors or involuntary orofacial movements Thought content: More hopeful Abstract reasoning, and computation: Intact Description of associations: Improved Description of abnormal or psychotic thoughts: Denies any suicidal or homicidal ideation. Denies any auditory or visual hallucinations. Does not appear to be responding to internal stimuli. Does not overtly endorse any bizarre paranoid ideation Judgment: Improving Insight: Improving Orientation: Alert and orientated 3 Cognition: Grossly normal Recent and remote memory: Intact Attention span and concentration: Intact Fund of knowledge: Adequate Mood: "okay" Affect: Less irritable. Diagnoses Bipolar 1 disorder, current episode manic: improving. Cannabis use disorder, severe. Assessment and Plan The patient a 54-year-old woman with a history of bipolar disorder and significant cannabis use is seen on the inpatient unit. She does appear to be improving on Depakote and abilify However, she reports that she is concerned about the long-term side effects of Depakote having previously been on it in the past. The patient reports now symptoms of increased mixed episode with strong dysphoria. The patient reports that she is improving with the Depakote and is becoming much less behaviourally challenging. Start to continue Depakote 250 mg BID with dose now of 250 mg. Continue Abilify 5 mg at night and continue home hydroxyzine dose of 50 mg TID PRN. Metabolic labs: Depakote level ordered for tomorrow. Disposition The patient will need a further inpatient stay in order to do further laboratory workup on her medication and observe the effects to ensure that she does not decompensate as she had done with the lithium. Time Spent 20 minutes face to face. Friday Vital Signs Vital Signs Date Time Temp Pulse Resp B/P (MAP) Pulse Ox O2 Delivery O2 Flow Rate FiO2 06/15/19 06:46 98.4 95 14 139/85 (103) Laboratory Data 24H Labs Laboratory Tests 2 06/14/19 16:38: Bedside Glucose (Misc Panel) 106H 06/15/19 06:19: Bedside Glucose (Misc Panel) 96 Current Medications Current Medications Acetaminophen (Tylenol Tab) 650 mg Q6HP PRN PO HEADACHE or DISCOMFORT Last administered on 06/13/19at 20:34; Start 06/08/19 at 13:15 Albuterol/ Ipratropium (Combivent Respimat 100-20mcg) 1 puff RBID INH Last administered on 06/15/19at 07:57; Start 06/09/19 at 08:00 Aripiprazole (AbiLIFY) 5 mg BID PO ; Start 06/10/19 at 21:00; Status Cancel Aripiprazole (AbiLIFY) 5 mg QHS PO Last administered on 06/14/19at 21:04; Start 06/14/19 at 21:00 Baclofen (Lioresal) 20 mg TID PO Last administered on 06/15/19at 08:02; Start 06/08/19 at 16:00 Buspirone HCl (Buspar) 10 mg BID PO Last administered on 06/15/19at 08:02; Start 06/09/19 at 21:00 Chlorpromazine HCl (Thorazine) 25 mg STAT STAT IM Last administered on 06/08/19at 01:10; Start 06/08/19 at 00:31; Stop 06/08/19 at 00:48; Status DC Diphenhydramine HCl (Benadryl) 50 mg STAT STAT IM Last administered on 06/08/19at 00:26; Start 06/07/19 at 23:40; Stop 06/07/19 at 23:43; Status DC Divalproex Sodium (Depakote Er) 250 mg BID PO Last administered on 06/11/19at 07:57; Start 06/10/19 at 21:00; Stop 06/11/19 at 10:26; Status DC Divalproex Sodium (Depakote) 250 mg BID PO Last administered on 06/15/19at 08:02 ; Start 06/14/19 at 21:00 Ferrous Sulfate (Ferrous Sulfate) 325 mg QHS PO Last administered on 06/14/19at 21:06; Start 06/08/19 at 21:00 Haloperidol (Haldol) 5 mg STAT STAT IM Last administered on 06/08/19at 00:27; Start 06/07/19 at 23:40; Stop 06/07/19 at 23:48; Status DC Home Med (Med Rec Complete!) ASDIRECTED XX ; Start 06/08/19 at 09:45; Stop 06/08/19 at 09:45; Status DC Hydroxyzine HCl (Atarax) 10 mg STAT STAT PO ; Start 06/07/19 at 23:40; Stop 06/07/19 at 23:43; Status DC Hydroxyzine HCl (Atarax) 50 mg TIDP PRN PO ANXIETY/AGITATION; Start 06/14/19 at 13:30 [place] Carbonate ([place] Carbonate) 300 mg BID PO ; Start 06/13/19 at 21:00; Stop 06/14/19 at 13:32; Status DC [place] Carbonate ([place] Carbonate) 300 mg QHS PO Last administered on 06/09/19at 20:39; Start 06/09/19 at 21:00; Stop 06/10/19 at 11:28; Status DC [place] Carbonate ([place] Carbonate) 300 mg QHS PO Last administered on 06/12/19at 20:28; Start 06/11/19 at 21:00; Stop 06/13/19 at 15:17; Status DC Lorazepam (Ativan) 1 mg STAT STAT IM Last administered on 06/08/19 00:41; Start 06/08/19 at 00:31; Stop 06/08/19 at 00:33; Status DC Lorazepam (Ativan) 2 mg Q4HP PRN PO ANXIETY/AGITATION Last administered on 06/14/19 10:21; Start 06/10/19 at 11:30 Magnesium Hydroxide (Milk Of Magnesia) 30 ml DAILYPRN PRN PO CONSTIPATION Last administered on 06/11/19 21:02; Start 06/08/19 at 13:15 Magnesium Oxide (Mag-Ox) 400 mg QHS PO Last administered on 06/14/19 21:06; Start 06/08/19 at 21:00 Metformin HCl (Glucophage Xr) 500 mg DAILY PO Last administered on 06/15/19 08:03; Start 06/09/19 at 09:00 Olanzapine (ZyPREXA) 5 mg Q4HP PRN PO AGITATION Last administered on 06/13/19 22:32; Start 06/08/19 at 13:15 Paliperidone (Invega) 3 mg QAM PO Last administered on 06/11/19 07:57; Start 06/11/19 at 09:00; Stop 06/11/19 at 10:26; Status DC Paliperidone (Invega) 3 mg QHS PO Last administered on 06/10/19 20:08; Start 06/10/19 at 21:00; Stop 06/11/19 at 10:26; Status DC Pantoprazole Sodium (Protonix) 40 mg DAILY@0700 PO Last administered on 06/15/19 06:20; Start 06/13/19 at 07:00 Pantoprazole Sodium (Protonix) 40 mg QAM PO Last administered on 06/12/19 08:02; Start 06/11/19 at 09:00; Stop 06/12/19 at 12:05; Status DC Prazosin HCl (Minipress) 2 mg QHS PO Last administered on 06/14/19 21:10; Start 06/08/19 at 21:00 Trazodone HCl (Desyrel) 50 mg QHSP PRN PO INSOMNIA Last administered on 06/14/19 21:07; Start 06/08/19 at 13:15 Allergies Coded Allergies: Penicillins (Verified Allergy, Unknown, CHILDHOOD REACTION, 06/08/19) bacitracin (Verified Allergy, Unknown, SWELLING, 06/08/19) neomycin (Verified Allergy, Unknown, SWELLING, 06/08/19) polymyxin B (Verified Allergy, Unknown, SWELLING, 06/08/19) ciprofloxacin (Verified Adverse Reaction, Intermediate, MUSCLE PAIN, 06/08/19) ibuprofen (Verified Adverse Reaction, Intermediate, HORRIBLE PAIN IN BACK, 06/07/19) levofloxacin (Verified Adverse Reaction, Intermediate, SEVERE MUSCLE PAIN, 06/08/19) SUNIL MAXWELL DO Jun 15, 2019 11:29
[2019-06-15] MEDS: hydrOXYzine 50 MG TAB PO PRN (16:25)
[2019-06-15 18:12] VITALS: BP 140/79
[2019-06-15] MEDS: MAGNESIUM OXIDE 400 MG TAB (MAG-OX) PO SCH (20:06)
[2019-06-15] MEDS: FERROUS SULFATE 325MG TAB PO SCH (20:06)
[2019-06-15] MEDS: PRAZOSIN 1 MG CAP PO SCH (20:07)
[2019-06-16] MEDS: traZODone 50 MG TAB PO PRN (01:53)
[2019-06-16] MEDS: OLANZapine 5 MG TAB PO PRN (04:54)
[2019-06-16] MEDS: LORazepam 2 MG TAB PO PRN (05:13)
[2019-06-16] MEDS: hydrOXYzine 50 MG TAB PO PRN ×2 (05:13→16:19)
[2019-06-16] MEDS: PANTOPRAZOLE 40MG TAB (PROTONIX) PO SCH (06:15)
[2019-06-16 06:59] VITALS: BP 129/90
[2019-06-16 07:26] LABS: HEMOGLOBIN A1c 5.9 %
[2019-06-16 07:28] LABS: ALBUMIN 3.7 GM/DL (3.2-5.2); ALT/SGPT 26 U/L (12-78); BILIRUBIN,TOTAL 0.3 MG/DL (0.2-1.0); BLOOD UREA NITROGEN 22 MG/DL (7-18); CALCIUM LEVEL 8.6 MG/DL (8.5-10.1); CARBON DIOXIDE LEVEL 28 MEQ/L (21-32); CHLORIDE LEVEL 107 MEQ/L (98-107); CHOLESTEROL LEVEL 111 MG/DL (<200); CHOLESTEROL RISK RATIO 2.642 (<5); CREATININE FOR GFR 0.86 MG/DL (0.55-1.30); GLOMERULAR FILTRATION RATE > 60.0 (>51); GLUCOSE, FASTING 95 MG/DL (70-100); HDL CHOLESTEROL 42 MG/DL (>40); LDL CHOLESTEROL 58 MG/DL (<100); NON-HDL-C 69 MG/DL; SODIUM LEVEL 141 MEQ/L (136-145); TOTAL PROTEIN 7.1 GM/DL (6.4-8.2); TRIGLYCERIDES LEVEL 56 MG/DL (<150)
[2019-06-16 08:02] LABS: VALPROIC ACID (DEPAKOTE) 37.6 UG/ML (50.0-100.0)
[2019-06-16] MEDS: COMBIVENT RESPIMAT 100-20MCG INHALER 4GM INH SCH ×2 (08:43→21:27)
[2019-06-16] MEDS: BACLOFEN 10 MG TAB PO SCH ×3 (08:44→21:27)
[2019-06-16] MEDS: DIVALPROEX 250 MG TAB PO SCH (08:45)
[2019-06-16] MEDS: busPIRone 10 MG TAB PO SCH ×2 (08:45→21:27)
[2019-06-16] MEDS: metFORMIN XR 500MG TAB *GLUCOPHAGE XR PO SCH (08:46)
--- NOTE | 2019-06-16 10:38 | MHIPNPDOC ---
[facility] Progress Note Progress Note Inpatient Progress Note Pippa Monk Age 54 Female Date of : 1965 Date of Service: 06/16/2019 History of Present Illness The patient a 54-year-old woman presents to [facility] [place] after notably acting in a bizarre manner in a local dairy shop, where she had subsequently began yelling that her boyfriend was killing her and drove off, leaving her boyfriend stranded. Her boyfriend relayed a consistent story of increasing bizarre ideation and behavioral problems. She has a history of bipolar when she was initially brought into the emergency room. She was noted to be fairly agitated, spitting on staff and needing to be physically restrained. Interval History The patient is met with today. She describes that she is feeling more improved and wishes to go home. When told that we would have to see how that would go, she became fairly labile and began crying profusely. She has been noted to be making some improvements and generally having an open "good day" by some of the staff. She has been attending groups and has become much less agitated. No longer starting conflicts and being threatening with other patients. Review Of Systems Denies any side effects of her Depakote or Abilify. No tremors or GI side effects. Psychotherapy None on this visit. Vital Signs Reviewed. Mental Status Examination General: Well dressed with good hygiene Speech: Spontaneous and fluid Thought processes: More linear MSK: Smooth and coordinated gait, no signs of tremors or involuntary orofacial movements Thought content: More hopeful Abstract reasoning, and computation: Intact Description of associations: Improved Description of abnormal or psychotic thoughts: Denies any suicidal or homicidal ideation. Denies any auditory or visual hallucinations. Does not appear to be responding to internal stimuli. Does not overtly endorse any bizarre paranoid ideation Judgment: Improving Insight: Improving Orientation: Alert and orientated 3 Cognition: Grossly normal Recent and remote memory: Intact Attention span and concentration: Intact Fund of knowledge: Adequate Mood: "okay" Affect: Less irritable. Diagnoses Bipolar 1 disorder, current episode manic: improving. Cannabis use disorder, severe. Assessment and Plan The patient a 54-year-old woman with a history of bipolar disorder and significant cannabis use is seen on the inpatient unit. She does appear to be improving on Depakote and paliperidone. However, she reports that she is concerned about the long-term side effects of Depakote having previously been on it in the past. The patient reports now symptoms of increased mixed episode with strong dysphoria. The patient reports that she is improving with the Depakote and is becoming much less behaviourally challenging. Increase Depakote to 500 mg twice daily and Abilify 10 mg at night to further control mood variation and delusional thinking. Continue hydroxyzine. Disposition The patient will need a further inpatient stay in order to do further laboratory workup on her medication and observe the effects to ensure that she does not decompensate as she had done with the lithium. Time Spent 20 minutes face to face. Friday Vital Signs Vital Signs Date Time Temp Pulse Resp B/P (MAP) Pulse Ox O2 Delivery O2 Flow Rate FiO2 06/16/19 08:29 Room Air 06/16/19 06:59 96.9 89 16 129/90 (103) Laboratory Data 24H Labs Laboratory Tests 2 06/15/19 16:28: Bedside Glucose (Misc Panel) 101 06/16/19 06:14: Bedside Glucose (Misc Panel) 93 06/16/19 06:46: Anion Gap 6L, Glomerular Filtration Rate > 60.0, Estimated Mean Plasma Glucose 123H, Hemoglobin A1c 5.9, Blood Urea Nitrogen 22H, Creatinine 0.86, Sodium Level 141, Potassium Level 4.0, Chloride Level 107, Carbon Dioxide Level 28, Calcium Level 8.6, Aspartate Amino Transf (AST/SGOT) 13, Alanine Aminotransferase (ALT/SGPT) 26, Alkaline Phosphatase 81, Total Bilirubin 0.3, Triglycerides Level 56, LDL Cholesterol 58, Total Protein 7.1, Albumin 3.7, Albumin/Globulin Ratio 1.09, Total Cholesterol 111, Non-HDL Cholesterol (LDL + VLDL) 69, Total HDL Cholesterol 42, Cholesterol/HDL Ratio 2.642, Valproic Acid (Depakene) Level 37.6L CBC/BMP Laboratory Tests 06/16/19 06:46 Calcium Level 8.6, Aspartate Amino Transf (AST/SGOT) 13, Alanine Aminotransferase (ALT/SGPT) 26, Alkaline Phosphatase 81, Total Bilirubin 0.3, Triglycerides Level 56, LDL Cholesterol 58, Total Protein 7.1, Albumin 3.7 Current Medications Current Medications Acetaminophen (Tylenol Tab) 650 mg Q6HP PRN PO HEADACHE or DISCOMFORT Last administered on 06/13/19 20:34; Start 06/08/19 at 13:15 Albuterol/ Ipratropium (Combivent Respimat 100-20mcg) 1 puff RBID INH Last administered on 06/16/19 08:43; Start 06/09/19 at 08:00 Aripiprazole (AbiLIFY) 5 mg BID PO ; Start 06/10/19 at 21:00; Status Cancel Aripiprazole (AbiLIFY) 5 mg QHS PO Last administered on 06/15/19 20:05; Start 06/14/19 at 21:00 Baclofen (Lioresal) 20 mg TID PO Last administered on 06/16/19 08:44; Start 06/08/19 at 16:00 Buspirone HCl (Buspar) 10 mg BID PO Last administered on 06/16/19 08:45; Start 06/09/19 at 21:00 Chlorpromazine HCl (Thorazine) 25 mg STAT STAT IM Last administered on 06/08/19 01:10; Start 06/08/19 at 00:31; Stop 06/08/19 at 00:48; Status DC Diphenhydramine HCl (Benadryl) 50 mg STAT STAT IM Last administered on 06/08/19 00:26; Start 06/07/19 at 23:40; Stop 06/07/19 at 23:43; Status DC Divalproex Sodium (Depakote Er) 250 mg BID PO Last administered on 06/11/19 07:57; Start 06/10/19 at 21:00; Stop 06/11/19 at 10:26; Status DC Divalproex Sodium (Depakote) 250 mg BID PO Last administered on 06/16/19 08: 45; Start 06/14/19 at 21:00 Ferrous Sulfate (Ferrous Sulfate) 325 mg QHS PO Last administered on 06/15/19 20:06; Start 06/08/19 at 21:00 Haloperidol (Haldol) 5 mg STAT STAT IM Last administered on 06/08/19 00:27; Start 06/07/19 at 23:40; Stop 06/07/19 at 23:48; Status DC Home Med (Med Rec Complete!) ASDIRECTED XX ; Start 06/08/19 at 09:45; Stop 06/08/19 at 09:45; Status DC Hydroxyzine HCl (Atarax) 10 mg STAT STAT PO ; Start 06/07/19 at 23:40; Stop 06/07/19 at 23:43; Status DC Hydroxyzine HCl (Atarax) 50 mg TIDP PRN PO ANXIETY/AGITATION Last administered on 06/16/19 05:13; Start 06/14/19 at 13:30 [place] Carbonate ([place] Carbonate) 300 mg BID PO ; Start 06/13/19 at 21:00; Stop 06/14/19 at 13:32; Status DC [place] Carbonate ([place] Carbonate) 300 mg QHS PO Last administered on at 20:39; Start 06/09/19 at 21:00; Stop 06/10/19 at 11:28; Status DC [place] Carbonate ([place] Carbonate) 300 mg QHS PO Last administered on 06/12/19at 20:28; Start 06/11/19 at 21:00; Stop 06/13/19 at 15:17; Status DC Lorazepam (Ativan) 1 mg STAT STAT IM Last administered on 06/08/19at 00:41; Start 06/08/19 at 00:31; Stop 06/08/19 at 00:33; Status DC Lorazepam (Ativan) 2 mg Q4HP PRN PO ANXIETY/AGITATION Last administered on 06/16/19 05:13; Start 06/10/19 at 11:30 Magnesium Hydroxide (Milk Of Magnesia) 30 ml DAILYPRN PRN PO CONSTIPATION Last administered on 06/11/19 21:02; Start 06/08/19 at 13:15 Magnesium Oxide (Mag-Ox) 400 mg QHS PO Last administered on 06/15/19at 20:06; Start 06/08/19 at 21:00 Metformin HCl (Glucophage Xr) 500 mg DAILY PO Last administered on 06/16/19at 08:46; Start 06/09/19 at 09:00 Olanzapine (ZyPREXA) 5 mg Q4HP PRN PO AGITATION Last administered on 06/16/19 04:54; Start 06/08/19 at 13:15 Paliperidone (Invega) 3 mg QAM PO Last administered on 7/12/19at 07:57; Start 06/11/19 at 09:00; Stop 06/11/19 at 10:26; Status DC Paliperidone (Invega) 3 mg QHS PO Last administered on 06/10/19at 20:08; Start 06/10/19 at 21:00; Stop 06/11/19 at 10:26; Status DC Pantoprazole Sodium (Protonix) 40 mg DAILY@0700 PO Last administered on 06/16/19at 06:15; Start 06/13/19 at 07:00 Pantoprazole Sodium (Protonix) 40 mg QAM PO Last administered on 06/12/19at 08:02; Start 06/11/19 at 09:00; Stop 06/12/19 at 12:05; Status DC Prazosin HCl (Minipress) 2 mg QHS PO Last administered on 06/15/19at 20:07; Start 06/08/19 at 21:00 Trazodone HCl (Desyrel) 50 mg QHSP PRN PO INSOMNIA Last administered on 06/16/19at 01:53; Start 06/08/19 at 13:15 Allergies Coded Allergies: Penicillins (Verified Allergy, Unknown, CHILDHOOD REACTION, 06/08/19) bacitracin (Verified Allergy, Unknown, SWELLING, 06/08/19) neomycin (Verified Allergy, Unknown, SWELLING, 06/08/19) polymyxin B (Verified Allergy, Unknown, SWELLING, 06/08/19) ciprofloxacin (Verified Adverse Reaction, Intermediate, MUSCLE PAIN, 06/08/19) ibuprofen (Verified Adverse Reaction, Intermediate, HORRIBLE PAIN IN BACK, 06/07/19) levofloxacin (Verified Adverse Reaction, Intermediate, SEVERE MUSCLE PAIN, 06/08/19) SUNIL MAXWELL DO Jun 16, 2019 10:38
[2019-06-16] MEDS ORDERED: LORazepam 1 MG TAB PO PRN (15:00)
[2019-06-16 18:14] VITALS: BP 150/82
[2019-06-16] MEDS: MAGNESIUM OXIDE 400 MG TAB (MAG-OX) PO SCH (21:27)
[2019-06-16] MEDS: ARIPiprazole 10 MG TAB PO SCH (21:27)
[2019-06-16] MEDS: PRAZOSIN 1 MG CAP PO SCH (21:28)
[2019-06-16] MEDS: FERROUS SULFATE 325MG TAB PO SCH (21:28)
[2019-06-16] MEDS: DIVALPROEX 500 MG TAB PO SCH (21:28)
[2019-06-17] MEDS: PANTOPRAZOLE 40MG TAB (PROTONIX) PO SCH (06:04)
[2019-06-17 06:25] VITALS: BP 129/71
[2019-06-17] MEDS: hydrOXYzine 50 MG TAB PO PRN ×2 (08:21→20:29)
[2019-06-17] MEDS: COMBIVENT RESPIMAT 100-20MCG INHALER 4GM INH SCH ×2 (08:21→20:29)
[2019-06-17] MEDS: DIVALPROEX 500 MG TAB PO SCH ×2 (08:21→20:24)
[2019-06-17] MEDS: metFORMIN XR 500MG TAB *GLUCOPHAGE XR PO SCH (08:21)
[2019-06-17] MEDS: busPIRone 10 MG TAB PO SCH ×2 (08:21→20:24)
[2019-06-17] MEDS: BACLOFEN 10 MG TAB PO SCH ×3 (08:21→20:24)
[2019-06-17 18:00] VITALS: BP 131/67
--- NOTE | 2019-06-17 18:14 | MHIPNPDOC ---
[facility] Progress Note Progress Note Inpatient Progress Note Pippa Monk Age 54 Female Date of : 1965 Date of Service: 06/17/2019 History of Present Illness The patient a 54-year-old woman presents to [facility] after notably acting in a bizarre manner in a local dairy shop, where she had subsequently began yelling that her boyfriend was killing her and drove off, leaving her boyfriend stranded. Her boyfriend relayed a consistent story of increasing bizarre ideation and behavioral problems. She has a history of bipolar when she was initially brought into the emergency room. She was noted to be fairly agitated, spitting on staff and needing to be physically restrained. Interval History The patient is met with today. She describes she is feeling much improved. Staff seem to support that she is much more able to attend to her needs with no bizarre behavior or ideation noted. She has been able to exercise much more control and has made significant improvement on the higher dose of Depakote and Abilify. She is requesting discharge and at this time, she no longer meets involuntary criteria. She reports that she is tolerating the Depakote fairly well other than some sedation of which she notes that she feels she "needs it" as she had had significant trouble sleeping during her manic episode. Review Of Systems The patient denies any GI side effects, tremors, or other side effects from her medications. Psychotherapy None on this visit. Vital Signs Reviewed. Mental Status Examination General: Well dressed with good hygiene Speech: Spontaneous and fluid Thought processes: Linear and logical MSK: Smooth and coordinated gait, no signs of tremors or involuntary orofacial movements Thought content: Future orientated Abstract reasoning, and computation: Intact Description of associations: Intact Description of abnormal or psychotic thoughts: Denies any suicidal or homicidal ideation. Denies any auditory or visual hallucinations. Does not appear to be responding to internal stimuli. Does not appear to be endorsing any bizarre or paranoid ideation. Judgment: fair Insight: fair Orientation: Alert and orientated 3 Cognition: Grossly normal Recent and remote memory: Intact Attention span and concentration: Intact Fund of knowledge: Adequate Mood: "okay" Affect: Euthymic with a full range Diagnoses Bipolar 1 disorder, current episode manic: stabilizing. Cannabis use disorder, severe. Assessment and Plan The patient a 54-year-old woman with a history of bipolar disorder and significant cannabis use is seen on the inpatient unit. She does appear to be improving on Depakote and paliperidone. However, she reports that she is concerned about the long-term side effects of Depakote having previously been on it in the past. The patient reports now symptoms of increased mixed episode with strong dysphoria. The patient reports that she is improving with the Depakote and is becoming much less behaviourally challenging. Continue Depakote 500 mg twice daily and Abilify 10 mg at night. Depakote level tonight. Continue hydroxyzine PRN. Disposition Likely discharge tomorrow as the patient has stabilized significantly. Time Spent 20 minutes face to face. Vital Signs Vital Signs Date Time Temp Pulse Resp B/P (MAP) Pulse Ox O2 Delivery O2 Flow Rate FiO2 06/17/19 06:25 97.1 101 18 129/71 (90) 06/16/19 08:29 Room Air Laboratory Data 24H Labs Laboratory Tests 2 06/17/19 05:45: Bedside Glucose (Misc Panel) 99 Current Medications Current Medications Acetaminophen (Tylenol Tab) 650 mg Q6HP PRN PO HEADACHE or DISCOMFORT Last administered on 06/13/19at 20:34; Start 06/08/19 at 13:15 Albuterol/ Ipratropium (Combivent Respimat 100-20mcg) 1 puff RBID INH Last administered on 06/17/19at 08:21; Start 06/09/19 at 08:00 Aripiprazole (AbiLIFY) 5 mg BID PO ; Start 06/10/19 at 21:00; Status Cancel Aripiprazole (AbiLIFY) 5 mg QHS PO Last administered on 06/15/19at 20:05; Start 06/14/19 at 21:00; Stop 06/16/19 at 18:08; Status DC Aripiprazole (AbiLIFY) 10 mg QHS PO Last administered on 06/16/19at 21:27; Start 06/16/19 at 21:00 Baclofen (Lioresal) 20 mg TID PO Last administered on 06/17/19at 15:01; Start 06/08/19 at 16:00 Buspirone HCl (Buspar) 10 mg BID PO Last administered on 06/17/19 08:21; Start 06/09/19 at 21:00 Chlorpromazine HCl (Thorazine) 25 mg STAT STAT IM Last administered on 06/08/19at 01:10; Start 06/08/19 at 00:31; Stop 06/08/19 at 00:48; Status DC Diphenhydramine HCl (Benadryl) 50 mg STAT STAT IM Last administered on 06/08/19at 00:26; Start 06/07/19 at 23:40; Stop 06/07/19 at 23:43; Status DC Divalproex Sodium (Depakote Er) 250 mg BID PO Last administered on 06/11/19at 07:57; Start 06/10/19 at 21:00; Stop 06/11/19 at 10:26; Status DC Divalproex Sodium (Depakote) 250 mg BID PO Last administered on 06/16/19at 08:45; Start 06/14/19 at 21:00; Stop 06/16/19 at 18:08; Status DC Divalproex Sodium (Depakote) 500 mg BID PO Last administered on 06/17/19at 08:21; Start 06/16/19 at 21:00 Ferrous Sulfate (Ferrous Sulfate) 325 mg QHS PO Last administered on 06/16/19at 21:28; Start 06/08/19 at 21:00 Haloperidol (Haldol) 5 mg STAT STAT IM Last administered on 06/08/19at 00:27; Start 06/07/19 at 23:40; Stop 06/07/19 at 23:48; Status DC Home Med (Med Rec Complete!) ASDIRECTED XX ; Start 06/08/19 at 09:45; Stop 06/08/19 at 09:45; Status DC Hydroxyzine HCl (Atarax) 10 mg STAT STAT PO ; Start 06/07/19 at 23:40; Stop 06/07/19 at 23:43; Status DC Hydroxyzine HCl (Atarax) 50 mg TIDP PRN PO ANXIETY/AGITATION Last administered on 06/17/19at 08:21; Start 06/14/19 at 13:30 Reform Carbonate (Reform Carbonate) 300 mg BID PO ; Start 06/13/19 at 21:00; Stop 06/14/19 at 13:32; Status DC Reform Carbonate (Reform Carbonate) 300 mg QHS PO Last administered on 06/09/19at 20:39; Start 06/09/19 at 21:00; Stop 06/10/19 at 11:28; Status DC Reform Carbonate (Reform Carbonate) 300 mg QHS PO Last administered on 06/12/19at 20:28; Start 06/11/19 at 21:00; Stop 06/13/19 at 15:17; Status DC Lorazepam (Ativan) 1 mg Q4HP PRN PO ANXIETY/AGITATION; Start 06/16/19 at 15:00 Lorazepam (Ativan) 1 mg STAT STAT IM Last administered on 06/08/19at 00:41; Start 06/08/19 at 00:31; Stop 06/08/19 at 00:33; Status DC Lorazepam (Ativan) 2 mg Q4HP PRN PO ANXIETY/AGITATION Last administered on 06/16/19at 05:13; Start 06/10/19 at 11:30; Stop 06/16/19 at 14:58; Status DC Magnesium Hydroxide (Milk Of Magnesia) 30 ml DAILYPRN PRN PO CONSTIPATION Last administered on 06/11/19 21:02; Start 06/08/19 at 13:15 Magnesium Oxide (Mag-Ox) 400 mg QHS PO Last administered on 06/16/19at 21:27; Start 06/08/19 at 21:00 Metformin HCl (Glucophage Xr) 500 mg DAILY PO Last administered on 06/17/19at 08:21; Start 06/09/19 at 09:00 Miscellaneous (Unresolved Clarification Entry) SEE LABEL COMMENTS DAILY XX ; Start 06/16/19 at 09:00; Stop 06/16/19 at 15:02; Status DC Olanzapine (ZyPREXA) 5 mg Q4HP PRN PO AGITATION Last administered on 06/16/19at 04:54; Start 06/08/19 at 13:15 Paliperidone (Invega) 3 mg QAM PO Last administered on 06/11/19at 07:57; Start 06/11/19 at 09:00; Stop 06/11/19 at 10:26; Status DC Paliperidone (Invega) 3 mg QHS PO Last administered on 06/10/19at 20:08; Start 06/10/19 at 21:00; Stop 06/11/19 at 10:26; Status DC Pantoprazole Sodium (Protonix) 40 mg DAILY@0700 PO Last administered on 06/17/19at 06:04; Start 06/13/19 at 07:00 Pantoprazole Sodium (Protonix) 40 mg QAM PO Last administered on 06/12/19at 08:02; Start 06/11/19 at 09:00; Stop 06/12/19 at 12:05; Status DC Prazosin HCl (Minipress) 2 mg QHS PO Last administered on 06/16/19at 21:28; Start 06/08/19 at 21:00 Trazodone HCl (Desyrel) 50 mg QHSP PRN PO INSOMNIA Last administered on 06/16/19at 01:53; Start 06/08/19 at 13:15 Allergies Coded Allergies: Penicillins (Verified Allergy, Unknown, CHILDHOOD REACTION, 06/08/19) bacitracin (Verified Allergy, Unknown, SWELLING, 06/08/19) neomycin (Verified Allergy, Unknown, SWELLING, 06/08/19) polymyxin B (Verified Allergy, Unknown, SWELLING, 06/08/19) ciprofloxacin (Verified Adverse Reaction, Intermediate, MUSCLE PAIN, 06/08/19) ibuprofen (Verified Adverse Reaction, Intermediate, HORRIBLE PAIN IN BACK, 06/07/19) levofloxacin (Verified Adverse Reaction, Intermediate, SEVERE MUSCLE PAIN, 06/08/19) SUNIL MAXWELL DO Jun 17, 2019 18:14
[2019-06-17] MEDS: ARIPiprazole 10 MG TAB PO SCH (20:24)
[2019-06-17] MEDS: FERROUS SULFATE 325MG TAB PO SCH (20:24)
[2019-06-17 20:28] VITALS: BP 130/88
[2019-06-17] MEDS: PRAZOSIN 1 MG CAP PO SCH (20:28)
[2019-06-17] MEDS: MAGNESIUM OXIDE 400 MG TAB (MAG-OX) PO SCH (20:29)
[2019-06-18] MEDS: traZODone 50 MG TAB PO PRN (01:33)
[2019-06-18] MEDS: PANTOPRAZOLE 40MG TAB (PROTONIX) PO SCH (06:17)
--- NOTE | 2019-06-18 06:33 | MHDSPDOC ---
[facility] Discharge Summary Discharge Summary DATE OF ADMISSION: Jun 08, 2019 at 13:15 DATE OF DISCHARGE: 06/18/19 Discharge Pippa Monk Age 54 Female Date of : 1965 Date of Service: 06/18/2019 Diagnoses Bipolar disorder, type 1, most recent episode manic in full remission. Cannabis use disorder, severe. History of Present Illness The patient a 54-year-old woman presents to [facility] after notably acting in a bizarre manner in a local dairy shop, where she had subsequently began yelling that her boyfriend was killing her and drove off, leaving her boyfriend stranded. Her boyfriend relayed a consistent story of increasing bizarre ideation and behavioral problems. She has a history of bipolar when she was initially brought into the emergency room. She was noted to be fairly agitated, spitting on staff and needing to be physically restrained. Consultants Involved Hospitalist/PCP screening Treatment and Progress On The Unit The patient was admitted to the unit, she was fairly agitated and disorganized. She was subsequently tried on lithium that produced some positive effects, but then the patient was notably reporting some "falls." However, observation on the unit indicated that these were behavioral or she would slowly lower herself to the ground. She had difficulty reframing her thoughts and was disorganized. She was subsequently started on Depakote 250 mg BID and Abilify 5 mg nightly, where she made positive progress increasing it to 500 mg BID and 10 mg nightly respectively produced very positive response with significant improvement, the patient became much less bizarre and able to attend to her needs. She no longer demonstrate any unusual ideation and was able to demonstrate at least 24 hours of full stability with no symptoms and no bizarre behaviors noted. She had no safety issues in terms of suicidal or homicidal thoughts during her admission. Discharge Assessment 54-year-old woman with a history of bipolar disorder and cannabis use, likely was fairly paranoid upon her admission and her bipolar disorder is likely triggered by her cannabis use. She is resistant to changing her cannabis use over time and her medications will likely serve only as effectively as she takes them. Discussed with the patient concerns about compliance and cannabis use. Mental Status Examination General: Well dressed with good hygiene Speech: Spontaneous and fluid Thought processes: Linear and logical MSK: Smooth and coordinated gait, no signs of tremors or involuntary orofacial movements Thought content: Future orientated Abstract reasoning, and computation: Intact Description of associations: Intact Description of abnormal or psychotic thoughts: Denies any suicidal or homicidal ideation. Denies any auditory or visual hallucinations. Does not appear to be responding to internal stimuli. Does not appear to be endorsing any bizarre or paranoid ideation. Judgment: fair Insight: fair Orientation: Alert and orientated 3 Cognition: Grossly normal Recent and remote memory: Intact Attention span and concentration: Intact Fund of knowledge: Adequate Mood: "okay" Affect: Euthymic with a full range Follow Up The social work team worked during the predischarge meeting in order to evaluate for further issues of lethality address them fully before discharge. They worked on safety planning with the patient's family members in order to ensure that the patient will have a safe and effective discharge. Depakote 500 mg extended-release BID, Abilify 10 mg nightly. Depakote level within normal range on final draw at 0.59. Time Spent The amount of time spent in the coordination of care for this patient was approximately 30 minutes. Friday Vital Signs/I&Os Vital Signs Date Time Temp Pulse Resp B/P (MAP) Pulse Ox O2 Delivery O2 Flow Rate FiO2 06/17/19 20:28 130/88 06/17/19 18:00 97.7 91 18 06/16/19 08:29 Room Air Laboratory Data Labs 24H Laboratory Tests 2 06/17/19 19:11: Valproic Acid (Depakene) Level 59.9 06/18/19 06:19: Bedside Glucose (Misc Panel) 94 Medications Scheduled Aripiprazole (Abilify) 10 Mg Tablet, 10 MG PO QHS for mood for 7 Days, #7 Baclofen (Baclofen) 20 Mg Tablet, 20 MG PO TID, (Reported) Buspirone HCl (Buspirone HCl) 10 Mg Tablet, 10 MG PO BID, (Reported) Divalproex Sodium (Depakote) 500 Mg Tablet.dr, 500 MG PO BID for mood for 7 Days, #14 Ferrous Sulfate (Iron) 325 Mg Tablet, 325 MG PO QHS, (Reported) Magnesium Oxide (Magnesium Oxide) 400 Mg Tablet, 400 MG PO QHS, (Reported) Metformin HCl (Metformin HCl ER) 500 Mg Tab.er.24h, 500 MG PO DAILY, (Reported) Multivit-Min/Iron/Folic/Lutein (Centrum Silver Women Tablet) 1 Each Tablet, 1 TAB PO QHS, (Reported) Omeprazole (Omeprazole) 20 Mg Capsule.dr, 20 MG PO DAILY, (Reported) Prazosin Hcl (Prazosin HCl) 2 Mg Capsule, 2 MG PO QHS, (Reported) Scheduled PRN Hydroxyzine HCl (Hydroxyzine HCl) 50 Mg Tablet, 50 MG PO TID PRN for ANXIETY, (Reported) Allergies Coded Allergies: Penicillins (Verified Allergy, Unknown, CHILDHOOD REACTION, 06/08/19) bacitracin (Verified Allergy, Unknown, SWELLING, 06/08/19) neomycin (Verified Allergy, Unknown, SWELLING, 06/08/19) polymyxin B (Verified Allergy, Unknown, SWELLING, 06/08/19) ciprofloxacin (Verified Adverse Reaction, Intermediate, MUSCLE PAIN, 06/08/19) ibuprofen (Verified Adverse Reaction, Intermediate, HORRIBLE PAIN IN BACK, 06/07/19) levofloxacin (Verified Adverse Reaction, Intermediate, SEVERE MUSCLE PAIN, 06/08/19) SUNIL MAXWELL DO Jun 18, 2019 06:33
[2019-06-18 06:38] VITALS: BP 141/78
[2019-06-18] MEDS: busPIRone 10 MG TAB PO SCH (08:16)
[2019-06-18] MEDS: BACLOFEN 10 MG TAB PO SCH (08:16)
[2019-06-18] MEDS: metFORMIN XR 500MG TAB *GLUCOPHAGE XR PO SCH (08:16)
[2019-06-18] MEDS: DIVALPROEX 500 MG TAB PO SCH (08:17)
[2019-06-18] MEDS: COMBIVENT RESPIMAT 100-20MCG INHALER 4GM INH SCH (08:17)
[2019-06-18] MEDS ORDERED: ABIL10TA9 PO (08:37)
[2019-06-18] MEDS ORDERED: DEPA1TAB3 PO (08:37)
== END 2019-06-18 10:40 | disposition home or self-care (01) | DRG 885 ==
LOC: M ED 23:16 → M ED INP 06-08 13:15 → M PSY 06-08 15:30
PROVIDERS: ADMIT Psychiatry & Neurology Addiction Medicine; ATTEND Psychiatry & Neurology Addiction Medicine
DX: F31.13 Bipolar disorder, current episode manic without psychotic features, severe (principal); E11.9 Type 2 diabetes mellitus without complications; G47.33 Obstructive sleep apnea (adult) (pediatric); E66.9 Obesity, unspecified; K21.9 Gastro-esophageal reflux disease without esophagitis; F43.10 Post-traumatic stress disorder, unspecified; F12.20 Cannabis dependence, uncomplicated; Z81.8 Family history of other mental and behavioral disorders; Z62.819 Personal history of unspecified abuse in childhood; Z79.84 Long term (current) use of oral hypoglycemic drugs; Z79.899 Other long term (current) drug therapy; Z88.0 Allergy status to penicillin; Z88.1 Allergy status to other antibiotic agents; Z88.6 Allergy status to analgesic agent; Z88.8 Allergy status to other drugs, medicaments and biological substances; Z90.49 Acquired absence of other specified parts of digestive tract; Z68.33 Body mass index [BMI] 33.0-33.9, adult

== ENCOUNTER → 2024-02-09 | Outpatient (CLI) | payer MEDICARE, MEDICAID ==
[~2024-02-09] MED LIST changes: +ABIL10TA9 PO; +BACL1TAB9 PO; +BP MED PO; +CENT1TAB9 PO; +DEPA1TAB3 PO; +HYDR1TAB33 PO; +HYDR50TA70 PO; -HYDRO50TAB PO; +IRON65TA2 PO; +MAGN400T2 PO; +METF-838 PO; +MIRT-60 PO; +OMEP-173 PO; +OMEP1CAP73 PO; -OMEP20CA4 PO; +PRAZ2CAP PO; +VENL37.52 PO
== END ==
LOC: M RAD 10:30
PROVIDERS: ATTEND Internal Medicine Hematology
DX: Z87.891 Personal history of nicotine dependence (principal)

== ENCOUNTER → 2024-03-02 | Outpatient (CLI) | payer MEDICARE, MEDICAID ==
[~2024-03-02] MED LIST changes: -MIRT-60 PO; +MIRT-89 PO
== END ==
LOC: M WHC 11:26
PROVIDERS: ATTEND Nurse Practitioner Family
DX: Z12.31 Encounter for screening mammogram for malignant neoplasm of breast (principal)

== ENCOUNTER → 2024-03-02 | Outpatient (REF) | payer MEDICARE, MEDICAID | LOC: M SFHCWAGY 18:07 | PROVIDERS: ATTEND Nurse Practitioner Family | DX: Z12.4 Encounter for screening for malignant neoplasm of cervix (principal); R87.610 Atypical squamous cells of undetermined significance on cytologic smear of cervix (ASC-US) | CPT/HCPCS: 87624; G0123 ==

== ENCOUNTER → 2024-03-14 | Outpatient (CLI) | payer MEDICARE, MEDICAID | LOC: M SLEEP 20:00 | PROVIDERS: ATTEND Nurse Practitioner Family | DX: G47.33 Obstructive sleep apnea (adult) (pediatric) (principal) ==

== ENCOUNTER → 2024-08-16 | Outpatient (CLI) | payer MEDICARE, MEDICAID ==
[2024-08-16 10:28] LABS: HEMATOCRIT 41.3 % (36.0-47.0); HEMOGLOBIN 13.7 g/dl (12.0-15.5); MEAN CORPUSCULAR HEMOGLOBIN 30.4 pg (27.0-33.0); MEAN CORPUSCULAR HGB CONC 33.2 g/dl (32.0-36.5); MEAN CORPUSCULAR VOLUME 91.8 fl (80.0-96.0); PLATELET COUNT, AUTOMATED 285 10^3/uL (150-450); WHITE BLOOD COUNT 7.1 10^3/uL (4.0-10.0)
[2024-08-16 10:51] LABS: CREATININE, URINE 77.3 MG/DL; MALB URINE SIEMENS < 3.0 MG/L; MAU/CREAT RATIO 3.8 MCG/MG (0.0-30.0)
[2024-08-16 10:53] LABS: C REACTIVE PROTEIN QUANTITATIV < 0.40 MG/DL (<1.0)
[2024-08-16 10:54] LABS: FREE T4 1.28 NG/DL (0.89-1.76)
[2024-08-16 10:55] LABS: ALBUMIN 3.6 G/DL (3.2-5.2); ALKALINE PHOSPHATASE 79 U/L (46-116); ALT/SGPT 32 U/L (7.0-40); AST/SGOT 16 U/L (<34); BILIRUBIN,TOTAL 0.4 MG/DL (0.3-1.2); BLOOD UREA NITROGEN 17 MG/DL (9-23); CALCIUM LEVEL 9.1 MG/DL (8.5-10.1); CARBON DIOXIDE LEVEL 29 MMOL/L (20-31); CHLORIDE LEVEL 108 MMOL/L (98-107); CHOLESTEROL LEVEL 152 MG/DL (<200); CHOLESTEROL RISK RATIO 5.18 (<5); CREATININE FOR GFR 0.84 MG/DL (0.55-1.30); GLOMERULAR FILTRATION RATE > 60.0 (>51); GLUCOSE, FASTING 103 MG/DL (60-100); HDL CHOLESTEROL 29.3 MG/DL (>40); LDL CHOLESTEROL 101.9 MG/DL (<100); NON-HDL-C 122.7 MG/DL; POTASSIUM SERUM 3.9 MMOL/L (3.5-5.1); SODIUM LEVEL 143 MMOL/L (136-145); THYROID STIMULATING HORMONE 1.663 uIU/ML (0.55-4.78); TRIGLYCERIDES LEVEL 104 MG/DL (<150)
[2024-08-16 10:56] LABS: TOTAL 25(OH) VITAMIN D 47.4 NG/ML (20.0-100.0); VITAMIN B12 LEVEL 663 PG/ML (211-911)
== END ==
LOC: M PLALAB 08:29
PROVIDERS: ATTEND Internal Medicine Hematology
DX: I10 Essential (primary) hypertension (principal)

== ENCOUNTER → 2024-09-06 | Outpatient (CLI) | payer MEDICARE, MEDICAID | LOC: M PLAIMG 08:59 | PROVIDERS: ATTEND Internal Medicine Hematology | DX: M47.896 Other spondylosis, lumbar region (principal) ==

== ENCOUNTER 2024-10-26 11:08 | Inpatient (IN) | payer MEDICARE, MEDICAID ==
[~2024-10-26] VITALS: Ht 152.4 cm; Wt 104.1 kg
[2024-10-26 12:21] LABS: HEMATOCRIT 43.1 % (36.0-47.0); HEMOGLOBIN 14.7 g/dl (12.0-15.5); MEAN CORPUSCULAR HEMOGLOBIN 30.4 pg (27.0-33.0); MEAN CORPUSCULAR HGB CONC 34.1 g/dl (32.0-36.5); MEAN CORPUSCULAR VOLUME 89.2 fl (80.0-96.0); PLATELET COUNT, AUTOMATED 342 10^3/uL (150-450); RED BLOOD COUNT 4.83 10^6/uL (4.00-5.40); WHITE BLOOD COUNT 11.6 10^3/uL (4.0-10.0)
[2024-10-26 12:46] LABS: AMPHETAMINES LEVEL URINE NEGATIVE (NEGATIVE); BARBITURATES URINE NEGATIVE (NEGATIVE); BENZODIAZEPINES URINE NEGATIVE (NEGATIVE); COCAINE METABOLITE URINE NEGATIVE (NEGATIVE); PHENCYCLIDINE URINE NEGATIVE (NEGATIVE)
[2024-10-26 12:47] LABS: METHADONE URINE NEGATIVE (NEGATIVE); OPIATES URINE NEGATIVE (NEGATIVE)
[2024-10-26 12:48] LABS: ETHYL ALCOHOL (ETHANOL) < 0.003 % (0.000-0.010); VALPROIC ACID (DEPAKOTE) < 3.0 UG/ML (50.0-100.0)
[2024-10-26 12:50] LABS: SALICYLATE LEVEL < 3.0 MG/DL (<30)
[2024-10-26 12:50] LABS: CANNABINOIDS URINE POSITIVE (NEGATIVE)
[2024-10-26 12:55] LABS: ALBUMIN 3.8 G/DL (3.2-5.2); ALKALINE PHOSPHATASE 94 U/L (35-104); ALT/SGPT 42 U/L (7.0-40); AST/SGOT 31 U/L (<34); BILIRUBIN,DIRECT 0.1 MG/DL (<0.4); BILIRUBIN,TOTAL 0.4 MG/DL (0.3-1.2); BLOOD UREA NITROGEN 24 MG/DL (9-23); CALCIUM LEVEL 11.5 MG/DL (8.5-10.1); CARBON DIOXIDE LEVEL 20 MMOL/L (20-31); CHLORIDE LEVEL 104 MMOL/L (98-107); CREATININE FOR GFR 0.82 MG/DL (0.55-1.30); GLOMERULAR FILTRATION RATE > 60.0 (>51); GLUCOSE, FASTING 209 MG/DL (60-100); POTASSIUM SERUM 3.2 MMOL/L (3.5-5.1); SODIUM LEVEL 139 MMOL/L (136-145); THYROID STIMULATING HORMONE 1.339 uIU/ML (0.55-4.78); TOTAL PROTEIN 7.7 G/DL (5.7-8.2)
[2024-10-26 13:07] LABS: HCG, SERUM QUALITATIVE NEGATIVE (NEGATIVE)
[2024-10-26] MEDS: POTASSIUM CHLORIDE 10MEQ SR TABLET PO ONE (13:35)
[2024-10-26] MEDS: GABAPENTIN 300 MG CAP PO ONE (15:30)
[2024-10-26] MEDS ORDERED: CHLO125TA PO (15:40)
[2024-10-26] MEDS ORDERED: GABA-1172 PO (15:40)
[2024-10-26] MEDS ORDERED: HOME MED LIST COMPLETE! XX SCH (16:00)
[2024-10-26] MEDS ORDERED: MOM 30ML SUSPENSION UDC PO PRN (16:20)
[2024-10-26] MEDS ORDERED: MAALOX 30 ML SUSP *UDC PO PRN (16:20)
[2024-10-26] MEDS: CHLORTHALIDONE 25 MG TAB PO ONE (19:55)
[2024-10-26 21:18] VITALS: BP 136/94; TEMP 97.6; O2SAT 98
[2024-10-27 07:58] VITALS: BP 141/83; TEMP 97.6; O2SAT 98
[2024-10-27 14:53] VITALS: BP 144/74; TEMP 97.4; O2SAT 98
[2024-10-27] MEDS: GABAPENTIN 300 MG CAP PO SCH (15:05)
[2024-10-27] MEDS: OMEPRAZOLE 20MG CAP PO SCH (15:06)
[2024-10-27] MEDS: CHLORTHALIDONE 25 MG TAB PO SCH (15:11)
[2024-10-27] MEDS: traZODone 50 MG TAB PO PRN (20:36)
[2024-10-27] MEDS: diphenhydrAMINE 25MG CAP PO PRN (20:36)
[2024-10-27] MEDS: OLANZapine 5 MG TAB PO SCH (20:36)
[2024-10-28 06:28] VITALS: BP 158/90; TEMP 97.3; O2SAT 97
[2024-10-28] MEDS: NYSTATIN 100,000 UNITS/GM TOPICAL PWD 15GM TOP SCH (10:30)
[2024-10-28] MEDS: tiZANidine 4 MG TAB PO SCH (16:32)
[2024-10-28 17:21] VITALS: BP 122/68; TEMP 96.4; O2SAT 98
[2024-10-29] MEDS: ACETAMINOPHEN 325 MG TAB PO PRN (00:48)
[2024-10-29 06:40] VITALS: BP 138/73; TEMP 96.7; O2SAT 100
[2024-10-29 08:08] VITALS: BP 138/85
[2024-10-29 15:39] VITALS: BP 142/73; TEMP 97.1; O2SAT 99
[2024-10-30 06:20] VITALS: BP 134/73; TEMP 97; O2SAT 97
[2024-10-30 15:42] VITALS: BP 132/82; TEMP 97.7; O2SAT 96
[2024-10-31 06:32] VITALS: BP 134/63; TEMP 96.8; O2SAT 95
[2024-10-31 08:34] VITALS: BP 150/89
[2024-10-31 15:23] VITALS: BP 122/75; TEMP 97.9; O2SAT 98
[2024-10-31] MEDS: OLANZapine ORAL DISINTEGRATING TAB 5MG PO PRN (23:01)
[2024-11-01 06:21] VITALS: BP 158/84; TEMP 97.1; O2SAT 100
[2024-11-01 15:50] VITALS: BP 129/77; TEMP 97.7; O2SAT 98
[2024-11-01] MEDS: IBUPROFEN 400MG TAB PO PRN (23:41)
[2024-11-02 06:21] VITALS: BP 140/79; TEMP 98.4; O2SAT 98
[2024-11-02 08:41] VITALS: BP 139/82
[2024-11-02] MEDS ORDERED: TRAZ-252 PO (10:49)
[2024-11-02] MEDS ORDERED: OLAN5ZYD PO (10:49)
[2024-11-02] MEDS ORDERED: OLAN1TAB16 PO (10:49)
== END 2024-11-02 11:56 | disposition home or self-care (01) | DRG 885 ==
LOC: M ED 11:08 → M ED INP 16:17 → M PSY 20:56
PROVIDERS: ADMIT Psychiatry & Neurology Psychiatry; ATTEND Psychiatry & Neurology Psychiatry
DX: F31.9 Bipolar disorder, unspecified (principal); Z68.42 Body mass index [BMI] 45.0-49.9, adult; F41.9 Anxiety disorder, unspecified; G47.00 Insomnia, unspecified; I10 Essential (primary) hypertension; E66.01 Morbid (severe) obesity due to excess calories; M54.50 Low back pain, unspecified; G89.29 Other chronic pain; G47.33 Obstructive sleep apnea (adult) (pediatric); F17.210 Nicotine dependence, cigarettes, uncomplicated; H91.93 Unspecified hearing loss, bilateral; Z79.899 Other long term (current) drug therapy; Z88.0 Allergy status to penicillin; Z88.1 Allergy status to other antibiotic agents; Z88.6 Allergy status to analgesic agent; Z88.8 Allergy status to other drugs, medicaments and biological substances; Z97.4 Presence of external hearing-aid; F43.10 Post-traumatic stress disorder, unspecified; Z91.414 Personal history of adult intimate partner abuse